=== PATIENT | female | born 1955 | race Caucasian/White ===

== ENCOUNTER → 2016-12-05 | Outpatient (CLI) | payer BC ==
[~2016-12-05] MED LIST: ACET325T96 PO; CALC-279 PO; FNTTP50 TD; FNTTP50 TOP; FURO-85 PO; LSX20 PO; MRLP17 PO; MULT-506 PO; ONDA-63 PO; ONDA8TAB62 SL; SULF-183 PO; ULT50 PO; ULT50X PO
--- NOTE | 2016-12-05 13:54 | DIAGNOSTIC IMAGING REPORT ---
CHEST 2 VIEWS ROUTINE HISTORY: R91.1 Pulmonary [id number] Pleural effusion, malignant Prior to COMPARISON: Chest 10/27/2016. FINDINGS: No pneumothorax.] Jugular Port-A-Cath terminates at the SVC. The heart is stable in size. The left lung is essentially clear. Suture material within the right mid to lower lung zone. Progressive pleural/parenchymal density within the right hemithorax. This is demonstrated by diminished aeration within the right upper lobe. IMPRESSION: Progressive pleural/parenchymal density within the right hemithorax with near-complete opacification. Electronically signed by: Zach Darnell M.D. 12/05/2016 1:52 PM Dictated Date/Time: 12/05/2016 1:51 PM
== END | disposition home or self-care (01) ==
LOC: C.RAD 13:24
PROVIDERS: ATTEND Surgery
DX: R91.1 Solitary pulmonary nodule (principal); J91.0 Malignant pleural effusion

== ENCOUNTER 2016-12-12 14:55 | Inpatient (IN) | payer BC ==
[~2016-12-12] VITALS: Ht 160 cm; Wt 63.5 kg
[~2016-12-12 14:55] MED LIST changes: -FNTTP50 TOP; -FURO-85 PO; -LSX20 PO; -MRLP17 PO; -MULT-506 PO; -ONDA-63 PO; -SULF-183 PO; -ULT50 PO
[2016-12-12] MEDS ORDERED: SODIUM CHLORIDE 0.9% 1000ML 1,000 ML IV STA (15:06)
[2016-12-12] MEDS ORDERED: ONDANSETRON INJ 2 MG/ML 2 ML VIAL IV STA (15:06)
[2016-12-12] MEDS ORDERED: MoRPHine SULFATE 4 MG/ML 1 ML CARP\\VIAL IV PRN (15:15)
--- NOTE | 2016-12-12 15:45 | EMERGENCY ROOM VISIT NOTE ---
History Report prepared by Kayla: Kyra Madrid Under the Supervision of: Dr. Dell Hidalgo D.O. First contact with patient: 15:02 Chief Complaint: SWELLING TO EXTREMITY Stated Complaint: SENT FROM RAD. ONCOLOGY; SWELLING IN LEGS, COUGH History of Present Illness The patient is a 61 year old female who presents to the Emergency Room with complaints of persistent bilateral lower extremity swelling starting about 2 weeks ago. She reports tightness in her lower extremities. She also complains of generalized body aches. She reports a mild discomfort in her chest. She describes it to be pins and needles type of pain. She reports a headache which started 5 days ago. She denies fevers, chills, or any other complaints. She was referred to the Emergency Room by her oncologist. The patient has a history of uterine cancer occurring 2 years ago. She was diagnosed with lung cancer about a year ago which has metastasized to the liver. She is receiving radiation therapy. She is not currently receiving chemotherapy. She denies any history of cholecystectomy and appendectomy. Source of History: patient Onset: about 2 weeks ago Position: leg (bilateral) Quality: other (tightness) Timing: other (persistent) Associated Symptoms: + chest pain, + headache, No chills, No fevers Review of Systems See HPI for pertinent positives & negatives. A total of 10 systems reviewed and were otherwise negative. Past Medical & Surgical Medical Problems: (1) Anasarca (2) Carcinosarcoma of uterus (3) Pleural effusion (4) Port catheter in place Family History Cancer FH: abdominal aortic aneurysm repair Social History Smoking Status: Never Smoker Drug Use: none Marital Status: Occupation Status: employed Current/Historical Medications Scheduled Calcium Citrate-Vitamin D (Calcium Citrate + D), 1 TAB PO TID Fentanyl (Duragesic), 50 MCG TD CQ72HR Multivitamin (Multivitamin), 1 TAB PO QAM Scheduled PRN Acetaminophen Tab (Tylenol), 650 MG PO Q4-6H PRN for Pain Ondansetron Odt (Zofran Odt), 8 MG SL Q6H PRN for Nausea Tramadol HCl (Tramadol HCl), 50 MG PO Q4H PRN for Pain Allergies Coded Allergies: Oxycodone (Verified Adverse Reaction, Unknown, NAUSEA AND VOMITING WITH EVERY DOSE, 12/12/16) Physical Exam Vital Signs Date Time Temp Pulse Resp B/P Pulse Ox O2 Delivery O2 Flow Rate FiO2 12/12/16 19:01 86 121/66 98 Nasal Cannula 2.0 12/12/16 17:50 87 23 96 12/12/16 17:45 90 30 96 12/12/16 17:40 91 22 96 12/12/16 17:35 88 27 96 12/12/16 17:30 90 28 96 12/12/16 17:28 110/61 12/12/16 17:25 96 30 95 12/12/16 17:20 92 26 96 12/12/16 17:15 94 26 95 12/12/16 17:10 93 24 96 12/12/16 17:05 94 28 94 12/12/16 17:00 94 30 96 12/12/16 16:58 113/61 12/12/16 16:55 95 30 96 12/12/16 16:50 90 26 96 12/12/16 16:45 90 32 96 Nasal Cannula 2.0 12/12/16 16:40 91 21 90 12/12/16 16:35 87 31 12/12/16 16:30 96 26 12/12/16 16:28 113/99 12/12/16 16:25 85 20 94 12/12/16 16:20 93 29 95 12/12/16 16:15 81 26 99 Nasal Cannula 3.0 12/12/16 16:10 91 25 86 Room Air 12/12/16 16:09 83 12/12/16 16:03 86 22 119/69 90 Room Air 12/12/16 15:58 119/69 12/12/16 14:59 36.8 101 22 112/73 89 Room Air Physical Exam GENERAL: Patient is awake, alert, non anxious appearing but appears drained. EYES: The conjunctivae are clear. The pupils are round and reactive. EARS, NOSE, MOUTH AND THROAT: The nose is without any evidence of any deformity. Mucous membranes are moist tongue is midline NECK: The neck is nontender and supple. RESPIRATORY: Lung sounds are absent in the left lung field. Lung sounds are clear in the right lung field. No conversational dyspnea noted. CARDIOVASCULAR: Tachycardic rate and regular rhythm noted there no murmurs rubs or gallops normal S1 normal S2 GASTROINTESTINAL: The abdomen is soft. Bowel sounds are present in all quadrants. Abdomen is nontender BACK: No midline tenderness noted, large firm soft tissue mass over the right lateral rib cage. MUSCULOSKELETAL/EXTREMITIES: There is no evidence of gross deformity full range of motion is noted in the hips and shoulders SKIN: There is no obvious evidence of any rash. There are no petechiae, pallor or cyanosis noted. Pitting edema in bilateral lower extremities, no erythema or calf tenderness noted. NEUROLOGIC: Patient is awake alert and oriented x3 Medical Decision & Procedures ER Provider Diagnostic Interpretation: X-ray results as stated below per interpretation by me and the radiologist. SINGLE VIEW CHEST CLINICAL HISTORY: Generalized abdominal pain. Lower extremity swelling. History of lung cancer. FINDINGS: An AP, portable, upright chest radiograph is compared to study dated 12/05/2016 and correlated with chest CT dated 08/16/2016. A right internal jugular central venous infusion port is unchanged in position. The cardiac silhouette is largely obscured. The pulmonary vasculature is noncongested. Postoperative changes and volume loss are again noted in the right lung. Pleural fluid and parenchymal opacification throughout the right lung is similar to previous. The left lung is grossly clear. There is no pneumothorax. The skeletal structures are osteopenic. The bony thorax appears intact. IMPRESSION: 1. Pleural-parenchymal opacification throughout the right lung is unchanged from 12/05/2016. 2. The left lung is grossly clear. Electronically signed by: Kenny Bolanos M.D. 12/12/2016 3:55 PM Dictated Date/Time: 12/12/2016 3:53 PM KUB HISTORY: Generalized abdominal pain. COMPARISON: Chest 12/12/2016. Abdomen and pelvis CT 11/02/2016. FINDINGS: There are no dilated loops of small bowel to suggest an obstruction. Large amount well-formed stool seen within the colon and rectum. Stable complete opacification of the base of the right lung. No renal calculi. No ureteral calculi. No pneumoperitoneum or pneumatosis. Of note, the majority of the bowel is located within the left side the abdomen due to the inferiorly displaced liver. This remains unchanged. IMPRESSION: 1. No dilated loops of small bowel to suggest an obstruction. 2. Large amount of well-formed stool seen within the colon. 3. No change in the opacified right lung base. This is consistent with the patient's history of metastatic disease. Electronically signed by: Zach Darnell M.D. 12/12/2016 4:31 PM Dictated Date/Time: 12/12/2016 4:27 PM US results as stated below per my review and radiologist interpretation. ULTRASOUND VENOUS DOPPLER LWR EXT BILA CLINICAL HISTORY: Bilateral leg swelling COUGH COMPARISON STUDY: No previous studies for comparison. FINDINGS: Real-time and color flow Doppler imaging were performed. Flow was seen within the femoral, popliteal and calf veins with no intraluminal thrombus demonstrated. The saphenous vein is patent. IMPRESSION: No evidence of lower extremity DVT. Electronically signed by: Joe Langley M.D. 12/12/2016 6:36 PM Dictated Date/Time: 12/12/2016 6:35 PM Laboratory Results Test 12/12/16 15:43 12/12/16 16:19 12/12/16 16:43 Urine Color DK YELLOW Urine Appearance CLOUDY (CLEAR) Urine pH 6.0 (4.5-7.5) Urine Specific [place] 1.018 (1.000-1.030) Urine Protein TRACE (NEG) Urine Glucose (UA) NEG (NEG) Urine Ketones NEG (NEG) Urine Occult Blood NEG (NEG) Urine Nitrite POS (NEG) Urine Bilirubin NEG (NEG) Urine Urobilinogen POS (NEG) Urine Leukocyte Esterase MODERATE (NEG) Urine WBC (Auto) >30 /hpf (0-5) Urine RBC (Auto) 0-4 /hpf (0-4) Urine Hyaline Casts (Auto) 0 /lpf (0-5) Urine Epithelial Cells (Auto) 5-10 /lpf (0-5) Urine Bacteria (Auto) 1+ (NEG) Pro-B-Type Natriuretic Peptide 159 pg/ml (0-900) Lipase 76 U/L (73-393) Influenza Type A Antigen Neg for Influ A (NEG) Influenza Type B Antigen Neg for Influ B (NEG) Osmolality 266 mOsm/kg (280-300) Laboratory results per my review. Medications Administered Medications (Trade) Dose Ordered Sig/Pancho Route Start Time Stop Time Status Last Admin Dose Admin Sodium Chloride (Nss 1000ml) 1,000 ml @ 999 mls/hr Q1H1M STAT IV 12/12/16 15:06 12/12/16 16:06 DC 12/12/16 15:52 999 MLS/HR Ondansetron HCl (Zofran Inj) 4 mg NOW STAT IV 12/12/16 15:06 12/12/16 15:19 DC 12/12/16 15:52 4 MG Morphine Sulfate (MoRPHine SULFATE INJ) 4 mg Q15M PRN IV 12/12/16 15:15 12/13/16 05:56 DC 12/12/16 15:53 4 MG Albuterol/ Ipratropium (Duoneb) 3 ml NOW STAT INH 12/12/16 16:15 12/12/16 16:16 DC 12/12/16 16:28 3 ML Ceftriaxone Sodium (Rocephin Inj) 1 gm NOW STAT IV 12/12/16 16:30 12/12/16 16:32 DC 12/12/16 16:46 1 GM ECG Indication: chest pain, other (Lower extremity swelling) Rate (beats per minute): 93 Rhythm: normal sinus Findings: ST depression (Lateral), no ectopy Comparison ECG Date: June 27, 2016 Change: no significant change ED Course 1502: The patient was evaluated in room C05. A complete history and physical examination were performed. 1506: Zofran Inj 4 m IV, Sodium Chloride 1000 ml @ 999 mls/hr IV 1515: Morphine Sulfate 4 mg IV 1625: Upon reevaluation, the patient is resting comfortably. I discussed results and treatment plan with her. She verbalizes agreement and understanding. The patient will be evaluated for further management and care. 1627: I discussed the patient's case with Dr. Pisano, from [facility]. 1630: Rocephin Inj 1 gm IV 1656: I discussed the patient's case with Dr. Neff, thoracic surgeon with [facility]. He does not feel that the patient needs a drain at this time but will evaluate her further. 1701: I discussed the patient's case with Dr. Pisano who is recommending an ultrasound of the lower extremities. Medical Decision Differential diagnosis: Etiologies such as infections, reactive airway disease, pneumonia, pneumothorax , COPD, CHF, cardiac ischemia, pulmonary embolism, musculoskeletal, gastrointestinal, as well as others were entertained. Nursing notes reviewed. Patient's previous electronic medical records reviewed. The patient is a unfortunate 61-year-old female who suffers from metastatic uterine cancer. The patient has a large soft tissue mass in the right chest wall. This appears to be causing an effusion as well as decreased lung volume. She's been having worsening shortness of breath and now has significant lower extremity edema. The patient was sent to the [facility] department from the cancer center for evaluation. She was found to be hypoxic. I discussed the patient's laboratory and radiographic studies with her. She was treated with pain medication as well for chronic cancer related pain. On subsequent reevaluation she was feeling somewhat better. I discussed the patient's condition with the on -call [facility] hospitalist group. They've agreed to evaluate the patient in the emergency apartment for further management and disposition. Consults Time Called: 162 Consulting Physician: Dr. Pisano, from [facility] Returned Call: 162 I discussed the patient's case with Dr. Pisano, from [facility]. Additional Consults: Time Called: 165 Consulted Physician: Dr. Neff, thoracic surgeon with [facility] Returned Call: [phone] Additional Comments: I discussed the patient's case with Dr. Neff, thoracic surgeon with [facility]. He does not feel that the patient needs a drain at this time but will evaluate her further. Impression Primary Impression: SOB (shortness of breath) Additional Impressions: Pleural effusion on right Hypoxia Lower extremity edema Anemia Elevated troponin Scribe Attestation The scribe's documentation has been prepared under my direction and personally reviewed by me in its entirety. I confirm that the note above accurately reflects all work, treatment, procedures, and medical decision making performed by me. Departure Information Dispostion Being Evaluated By Hospitalist Referrals Chris Mei D.O. (PCP) Patient Instructions My [facility] Problem Qualifiers
--- NOTE | 2016-12-12 15:57 | DIAGNOSTIC IMAGING REPORT ---
SINGLE VIEW CHEST CLINICAL HISTORY: Generalized abdominal pain. Lower extremity swelling. History of lung cancer. FINDINGS: An AP, portable, upright chest radiograph is compared to study dated 12/05/2016 and correlated with chest CT dated 08/16/2016. A right internal jugular central venous infusion port is unchanged in position. The cardiac silhouette is largely obscured. The pulmonary vasculature is noncongested. Postoperative changes and volume loss are again noted in the right lung. Pleural fluid and parenchymal opacification throughout the right lung is similar to previous. The left lung is grossly clear. There is no pneumothorax. The skeletal structures are osteopenic. The bony thorax appears intact. IMPRESSION: 1. Pleural-parenchymal opacification throughout the right lung is unchanged from 12/05/2016. 2. The left lung is grossly clear. Electronically signed by: Kenny Bolanos M.D. 12/12/2016 3:55 PM Dictated Date/Time: 12/12/2016 3:53 PM
[2016-12-12 16:06] LABS: BASO % 0.3 %; BASO ABS # 0.02 K/uL (0-0.2); COMPLETE YES; EOS % 0.6 %; HEMATOCRIT 29.4 % (37-47); IG% 0.3 %; LYMPH % 2.3 %; LYMPH ABS # 0.16 K/uL (1.2-3.4); MEAN CORPUSCULAR HEMOGLOBIN 23.3 pg (25-34); MEAN CORPUSCULAR HGB CONC 30.6 g/dl (32-36); MEAN PLATELET VOLUME 9.1 fL (7.4-10.4); MONO % 11.6 %; NEUT % 84.9 %; PLATELET COUNT 310 K/uL (130-400); RED BLOOD COUNT 3.87 M/uL (4.2-5.4); WHITE BLOOD COUNT 6.98 K/uL (4.8-10.8)
[2016-12-12 16:09] LABS: URINE APPEARANCE CLOUDY (CLEAR); URINE BILIRUBIN NEG (NEG); URINE COLOR DK YELLOW; URINE NITRITE POS (NEG); URINE SPECIFIC GRAVITY 1.018 (1.000-1.030); UROBILINOGEN POS (NEG)
[2016-12-12 16:10] LABS: MANUAL MICROSCOPIC REQUIRED? NO; REVIEW REQ? NO
[2016-12-12 16:15] LABS: INR 1.3 (0.9-1.1); PARTIAL THROMBOPLASTIN RATIO 1.2; PROTHROMBIN TIME (PATIENT) 13.5 SECONDS (9.0-12.0)
[2016-12-12] MEDS ORDERED: ALBUT/IPRATROP 3MG/0.5MG NEB 3 ML VIAL INH STA (16:15)
[2016-12-12] MEDS ORDERED: CEFTRIAXONE SOD INJ 1 GM ADDVIAL IV STA (16:30)
--- NOTE | 2016-12-12 16:32 | DIAGNOSTIC IMAGING REPORT ---
KUB HISTORY: Generalized abdominal pain. COMPARISON: Chest 12/12/2016. Abdomen and pelvis CT 11/02/2016. FINDINGS: There are no dilated loops of small bowel to suggest an obstruction. Large amount well-formed stool seen within the colon and rectum. Stable complete opacification of the base of the right lung. No renal calculi. No ureteral calculi. No pneumoperitoneum or pneumatosis. Of note, the majority of the bowel is located within the left side the abdomen due to the inferiorly displaced liver. This remains unchanged. IMPRESSION: 1. No dilated loops of small bowel to suggest an obstruction. 2. Large amount of well-formed stool seen within the colon. 3. No change in the opacified right lung base. This is consistent with the patient's history of metastatic disease. Electronically signed by: Zach Darnell M.D. 12/12/2016 4:31 PM Dictated Date/Time: 12/12/2016 4:27 PM
[2016-12-12 16:50] LABS: BUN/CREATININE RATIO 11.6 (10-20); CALCIUM 9.8 mg/dl (8.5-10.1); CKMB/CK RATIO 4.2 (0-3.0); CREATININE 0.54 mg/dl (0.60-1.20); POTASSIUM 3.9 mmol/L (3.5-5.1)
--- NOTE | 2016-12-12 18:03 | Medical Student: [facility] ---
Med Student History & Physical Date & Time of Service: Dec 12, 2016 at 17:38 Chief Complaint: Sent From Rad. Oncology; Swelling In Legs, Cough Primary Care Physician: Chris Mei D.O. History of Present Illness Source: patient, family 61 y/o female with a history of uterine cancer two years ago and current lung cancer with mets to the liver presents with leg swelling that began about two weeks ago. The swelling goes from her feet, to the lower leg, and stops around the knees. She has never had this swelling previously. The patient is currently being treated with radiation therapy for the lung cancer. She received two treatments two weeks ago and received five last week. When she went in for treatment today, she was sent to the emergency department for the swelling, pain at the site of the radiation treatment, and vomiting. The vomiting has been on and off for weeks but got worse today. She describes the vomit as mostly mucus. Her appetite has been decreased for months. Additionally, the patient states she started to have a "pins and needles" pain in the middle of chest that began yesterday. The pain has been off and on and does not radiate elsewhere. This pain is distinct from the pain she is having at the site of her radiation treatment. The patient has been having worsening shortness of breath in the past week. She also has had a cough and congestion for over a month. Earlier today, she states that she was wheezing. The patient states she has been less active in recent weeks. In September, Dr. Neff drained an effusion. The patient is receiving Opdivo treatment for her cancer. Past Medical/Surgical History Medical Problems: (1) Anemia Status: Acute (2) Elevated troponin Status: Acute (3) Hypoxia Status: Acute (4) Lower extremity edema Status: Acute (5) Pleural effusion on right Status: Acute (6) SOB (shortness of breath) 7. Lung Cancer with Mets to liver 8. Uterine Cancer Status: Acute Family History Father: coronary artery disease Mother: cancer (breast, colon) Social History Smoking Status: Never Smoker Smokeless Tobacco Use: No Alcohol Use: none Drug Use: none Marital Status: Housing status: lives alone Occupational Status: employed Immunizations History of Influenza Vaccine: Yes History of Tetanus Vaccine?: No History of Pneumococcal: No History of Hepatitis B Vaccine: No Allergies Coded Allergies: Oxycodone (Verified Adverse Reaction, Unknown, NAUSEA AND VOMITING WITH EVERY DOSE, 12/12/16) Medications Acetaminophen Tab (Tylenol), 650 MG PO Q4-6H PRN for Pain Calcium Citrate-Vitamin D (Calcium Citrate + D), 1 TAB PO TID Fentanyl (Duragesic), 50 MCG TD CQ72HR Multivitamin (Multivitamin), 1 TAB PO QAM Ondansetron Odt (Zofran Odt), 8 MG SL Q6H PRN for Nausea Tramadol HCl (Tramadol HCl), 50 MG PO Q4H PRN for Pain Review of Systems Constitutional: + weakness, No chills, No fever Eyes: No discharge, No redness ENT: No hearing loss, No tinnitus Respiratory: + cough, + dyspnea on exertion, + shortness of breath, + sputum, + wheezing Cardiovascular: + chest pain, + edema Abdomen: + nausea, + vomiting, No constipation, No diarrhea, No pain Neurologic: No memory loss, No paralysis Integumentary: No itch, No new/changing skin lesions, No rash Physical Exam Vital Signs (24 Hours) Date Time Temp Pulse Resp B/P Pulse Ox O2 Delivery O2 Flow Rate FiO2 12/12/16 16:45 90 32 96 Nasal Cannula 2.0 12/12/16 16:40 91 21 90 12/12/16 16:35 87 31 12/12/16 16:30 96 26 12/12/16 16:28 113/99 12/12/16 16:25 85 20 94 12/12/16 16:20 93 29 95 12/12/16 16:15 81 26 99 Nasal Cannula 3.0 12/12/16 16:10 91 25 86 Room Air 12/12/16 16:09 83 12/12/16 16:03 86 22 119/69 90 Room Air 12/12/16 15:58 119/69 12/12/16 14:59 36.8 101 22 112/73 89 Room Air General Appearance: no apparent distress, + thin Head: normocephalic Eyes: normal inspection, EOMI ENT: hearing grossly normal Respiratory/Chest: no respiratory distress, + pertinent finding (absent breath sounds on right, swelling, bruising, and tenderness on right side of rib cage at the site of radiation treatment) Cardiovascular: no gallop, no murmur, + tachycardia, + pertinent finding (3+ bilateral lower extremity edema from ankle to knee) Abdomen/GI: normal bowel sounds, non tender, soft Back: normal inspection, no muscle spasm Neurologic/Psych: alert, normal mood/affect, oriented x 3 Skin: warm/dry, no rash Diagnostics Laboratory Results Results Past 24 Hours Test 12/12/16 15:43 12/12/16 16:19 12/12/16 16:43 Range/Units White Blood Count 6.98 4.8-10.8 K/uL Red Blood Count 3.87 4.2-5.4 M/uL Hemoglobin 9.0 12.0-16.0 g/dL Hematocrit 29.4 37-47 % Mean Corpuscular Volume 76.0 80-100 fL Mean Corpuscular Hemoglobin 23.3 25-34 pg Mean Corpuscular Hemoglobin Concent 30.6 32-36 g/dl Platelet Count 310 130-400 K/uL Mean Platelet Volume 9.1 7.4-10.4 fL Neutrophils (%) (Auto) 84.9 % Lymphocytes (%) (Auto) 2.3 % Monocytes (%) (Auto) 11.6 % Eosinophils (%) (Auto) 0.6 % Basophils (%) (Auto) 0.3 % Neutrophils # (Auto) 5.93 1.4-6.5 K/uL Lymphocytes # (Auto) 0.16 1.2-3.4 K/uL Monocytes # (Auto) 0.81 0.11-0.59 K/uL Eosinophils # (Auto) 0.04 0-0.5 K/uL Basophils # (Auto) 0.02 0-0.2 K/uL RDW Standard Deviation 53.6 36.4-46.3 fL RDW Coefficient of Variation 19.4 11.5-14.5 % Immature Granulocyte % (Auto) 0.3 % Immature Granulocyte # (Auto) 0.02 0.00-0.02 K/uL Prothrombin Time 13.5 9.0-12.0 SECONDS Prothromb Time International Ratio 1.3 0.9-1.1 Activated Partial Thromboplast Time 30.5 21.0-31.0 SECONDS Partial Thromboplastin Ratio 1.2 Urine Color DK YELLOW Urine Appearance CLOUDY CLEAR Urine pH 6.0 4.5-7.5 Urine Specific [place] 1.018 1.000-1.030 Urine Protein TRACE NEG Urine Glucose (UA) NEG NEG Urine Ketones NEG NEG Urine Occult Blood NEG NEG Urine Nitrite POS NEG Urine Bilirubin NEG NEG Urine Urobilinogen POS NEG Urine Leukocyte Esterase MODERATE NEG Urine WBC (Auto) >30 0-5 /hpf Urine RBC (Auto) 0-4 0-4 /hpf Urine Hyaline Casts (Auto) 0 0-5 /lpf Urine Epithelial Cells (Auto) 5-10 0-5 /lpf Urine Bacteria (Auto) 1+ NEG Sodium Level 129 136-145 mmol/L Potassium Level 3.9 3.5-5.1 mmol/L Chloride Level 88 98-107 mmol/L Carbon Dioxide Level 31 21-32 mmol/L Anion Gap 10.0 3-11 mmol/L Blood Urea Nitrogen 6 7-18 mg/dl Creatinine 0.54 0.60-1.20 mg/dl Est Creatinine Clear Calc Drug Dose 102.8 ml/min Estimated GFR () 119.7 Estimated GFR (Non- 103.3 BUN/Creatinine Ratio 11.6 10-20 Random Glucose 87 70-99 mg/dl Calcium Level 9.8 8.5-10.1 mg/dl Total Bilirubin 0.7 0.2-1 mg/dl Direct Bilirubin 0.3 0-0.2 mg/dl Aspartate Amino Transf (AST/SGOT) 30 15-37 U/L Alanine Aminotransferase (ALT/SGPT) 17 12-78 U/L Alkaline Phosphatase 130 45-117 U/L Total Creatine Kinase 24 26-192 U/L Creatine Kinase MB 1.0 0.5-3.6 ng/ml Creatine Kinase MB Ratio 4.2 0-3.0 Troponin I 0.063 0-0.045 ng/ml Pro-B-Type Natriuretic Peptide 159 0-900 pg/ml Total Protein 7.0 6.4-8.2 gm/dl Albumin 2.5 3.4-5.0 gm/dl Lipase 76 73-393 U/L Influenza Type A Antigen Neg for Influ A NEG Influenza Type B Antigen Neg for Influ B NEG Osmolality 266 280-300 mOsm/kg Microbiology Results 12/12/16 Urine Culture, Stephen Batch Pending Diagnostic Radiology CXR: FINDINGS: An AP, portable, upright chest radiograph is compared to study dated 12/05/2016 and correlated with chest CT dated 08/16/2016. A right internal jugular central venous infusion port is unchanged in position. The cardiac silhouette is largely obscured. The pulmonary vasculature is noncongested. Postoperative changes and volume loss are again noted in the right lung. Pleural fluid and parenchymal opacification throughout the right lung is similar to previous. The left lung is grossly clear. There is no pneumothorax. The skeletal structures are osteopenic. The bony thorax appears intact. IMPRESSION: 1. Pleural-parenchymal opacification throughout the right lung is unchanged from 12/05/2016. 2. The left lung is grossly clear. KUB IMPRESSION: 1. No dilated loops of small bowel to suggest an obstruction. 2. Large amount of well-formed stool seen within the colon. 3. No change in the opacified right lung base. This is consistent with the patient's history of metastatic disease. LOWER EXTREMITY VENOUS DOPPLER IMPRESSION: No evidence of lower extremity DVT. Impression Assessment and Plan Assessment and Plan: Given the result of the patient's urinalysis, she will be treated for UTI. Serum osmolality showed a hypervolemic hyponatremia suggesting that the patient is in fluid overload and does not have SIADH. Fluid overload will be treated with Lasix. Given the patient's elevated troponin, will check serial cardiac enzymes. 1. Hypervolemic Hyponatremia and Leg Swelling- Administer Lasix IV [id number]. Continue to monitor electrolytes. 2. SOB, cough, congestion- Given the large pleural effusion and difficulty seeing potential infection on CXR, will consider ordering a CT of the chest to better visualize. Administer 2L 02 via nasal canula. 3. Radiation site pain- Fentanyl Patch 50mcg and Tramadol tab 50mg PO Q4h prn for pain. 4. Nausea and Vomiting- Administer Ondansetron 4mg IV PRN 5. Elevated Troponin and Chest Pain- Obtain serial cardiac enzymes and repeat ECGs. Echo ordered. 6. UTI- Ceftriaxone 1gm IV was administered. Continue to check urine.
--- NOTE | 2016-12-12 18:37 | DIAGNOSTIC IMAGING REPORT ---
ULTRASOUND VENOUS DOPPLER LWR EXT BILA CLINICAL HISTORY: Bilateral leg swelling COUGH COMPARISON STUDY: No previous studies for comparison. FINDINGS: Real-time and color flow Doppler imaging were performed. Flow was seen within the femoral, popliteal and calf veins with no intraluminal thrombus demonstrated. The saphenous vein is patent. IMPRESSION: No evidence of lower extremity DVT. Electronically signed by: Joe Langley M.D. 12/12/2016 6:36 PM Dictated Date/Time: 12/12/2016 6:35 PM
[2016-12-12] MEDS ORDERED: ZOLPIDEM TARTRATE 5 MG TAB PO PRN (20:15)
[2016-12-12] MEDS ORDERED: ONDANSETRON INJ 2 MG/ML 2 ML VIAL IV PRN (20:15)
[2016-12-12] MEDS ORDERED: TRAMADOL HCL 50 MG TAB PO PRN (20:15)
[2016-12-12] MEDS ORDERED: ACETAMINOPHEN 325 MG TAB PO PRN ×2 (20:15)
[2016-12-12 21:09] VITALS: BP 120/70; PULSE 82; TEMP 36.6; O2SAT 99; Ht 160 cm; Wt 63.5 kg
[2016-12-12] MEDS: ALBUMIN 25% 50 ML with FUROSEMIDE INJ 40 MG IV SCH ×2 (22:09)
[2016-12-12 22:22] LABS: CKMB/CK RATIO 2.3 (0-3.0)
[2016-12-12] MEDS: CHECK FENTANYL PATCH PLACEMENT SCH (23:30)
[2016-12-12 23:56] VITALS: BP 115/70; PULSE 86; TEMP 36.5; O2SAT 98
[2016-12-13] VITALS (12 sets, daily range): BP systolic 107–124; BP diastolic 58–71; PULSE 82–108; TEMP 36.6–36.9; O2SAT 91–98
[2016-12-13] MEDS: ALBUMIN 25% 50 ML with FUROSEMIDE INJ 40 MG IV SCH ×4 (03:57→10:59)
[2016-12-13 04:11] LABS: BASO % 0.3 %; BASO ABS # 0.02 K/uL (0-0.2); EOS % 1.4 %; HEMATOCRIT 24.2 % (37-47); IG% 0.3 %; LYMPH % 8.9 %; LYMPH ABS # 0.51 K/uL (1.2-3.4); MEAN CELL VOLUME 74.5 fL (80-100); MEAN CORPUSCULAR HEMOGLOBIN 23.1 pg (25-34); MEAN PLATELET VOLUME 9.4 fL (7.4-10.4); MONO % 5.2 %; NEUT % 83.9 %; PLATELET COUNT 239 K/uL (130-400); RED BLOOD COUNT 3.25 M/uL (4.2-5.4); WHITE BLOOD COUNT 5.72 K/uL (4.8-10.8)
[2016-12-13 04:18] LABS: INR 1.3 (0.9-1.1); PARTIAL THROMBOPLASTIN RATIO 1.2; PROTHROMBIN TIME (PATIENT) 14.4 SECONDS (9.0-12.0)
[2016-12-13 04:27] LABS: BUN/CREATININE RATIO 11.5 (10-20); CALCIUM 9.2 mg/dl (8.5-10.1); CREATININE 0.43 mg/dl (0.60-1.20); MAGNESIUM 1.2 mg/dl (1.8-2.4); POTASSIUM 3.8 mmol/L (3.5-5.1)
--- NOTE | 2016-12-13 04:30 | History and Physical ---
History & Physical Date & Time of Service: Dec 13, 2016 at 04:19 Chief Complaint: Anasarca, Elevated Troponin Primary Care Physician: Chris Mei D.O. History of Present Illness Source: patient The patient is a 61-year-old female who presents emergency department with 2 weeks of progressively worsening lower extremity edema, generalized body aches, shortness of breath, and headache. She had been diagnosed with lung cancer one year ago, with metastases to liver, status post chemotherapy, and is receiving radiation therapy. Past Medical/Surgical History Medical Problems: (1) Carcinosarcoma of uterus Permanent Comment: Postmenopausal vaginal bleeding CT scan revealing dilated endometrial cavity Status post endocervical biopsy revealing with the differentiated carcinoma Due to severe bleeding she was given 900 cGy of radiation in 3 fractions beginning 12/03/2014 Status post total [place] hysterectomy bilateral salpingo-oophorectomy and pelvic lymph node sampling with pelvic washings Report revealed carcinosarcoma pathologic stage pT2 bN0 [place] technique radiation and chemotherapy Status post 3 cycles of Taxol carboplatin then Status post completion of radiation therapy 05/07/2015, received 4500 cGy external beam therapy She received 3 HDR treatments total 1200 cGy Currently on Opdivo for metastatic disease Status: Resolved (2) Pleural effusion Status: Resolved (3) Port catheter in place Status: Chronic Family History Cancer FH: abdominal aortic aneurysm repair Social History Smoking Status: Never Smoker Smokeless Tobacco Use: No Alcohol Use: none Drug Use: none Marital Status: Housing status: lives alone Occupational Status: employed Immunizations History of Influenza Vaccine: Yes History of Tetanus Vaccine?: No History of Pneumococcal: No History of Hepatitis B Vaccine: No Allergies Coded Allergies: Oxycodone (Verified Adverse Reaction, Unknown, NAUSEA AND VOMITING WITH EVERY DOSE, 12/12/16) Home Medications Scheduled Calcium Citrate-Vitamin D (Calcium Citrate + D), 1 TAB PO TID Fentanyl (Duragesic), 50 MCG TD [id number] Multivitamin (Multivitamin), 1 TAB PO QAM Scheduled PRN Acetaminophen Tab (Tylenol), 650 MG PO Q4-6H PRN for Pain Ondansetron Odt (Zofran Odt), 8 MG SL Q6H PRN for Nausea Tramadol HCl (Tramadol HCl), 50 MG PO Q4H PRN for Pain Review of Systems The patient denies vision change, hearing change, sore throat, fevers, chills, sweats, blood in urine or stool, dysuria, urinary frequency or urgency, rash, abnormal bruising or bleeding, focal weakness, night sweats, or allergy symptoms. The review of systems is otherwise negative other than for that already noted above, and at least 10 systems have been reviewed. Physical Exam Vital Signs Date Time Temp Pulse Resp B/P Pulse Ox O2 Delivery O2 Flow Rate FiO2 12/13/16 03:57 36.6 86 18 115/68 98 Nasal Cannula 2.0 12/13/16 00:00 98 Nasal Cannula 2.0 12/12/16 23:56 36.5 86 18 115/70 98 Nasal Cannula 2.0 12/12/16 21:09 36.6 82 20 120/70 99 Nasal Cannula 2.0 12/12/16 20:14 89 18 112/77 98 12/12/16 20:12 88 12/12/16 19:01 86 121/66 98 Nasal Cannula 2.0 12/12/16 17:50 87 23 96 12/12/16 17:45 90 30 96 12/12/16 17:40 91 22 96 12/12/16 17:35 88 27 96 12/12/16 17:30 90 28 96 12/12/16 17:28 110/61 12/12/16 17:25 96 30 95 12/12/16 17:20 92 26 96 12/12/16 17:15 94 26 95 12/12/16 17:10 93 24 96 12/12/16 17:05 94 28 94 12/12/16 17:00 94 30 96 12/12/16 16:58 113/61 12/12/16 16:55 95 30 96 12/12/16 16:50 90 26 96 12/12/16 16:45 90 32 96 Nasal Cannula 2.0 12/12/16 16:40 91 21 90 12/12/16 16:35 87 31 12/12/16 16:30 96 26 12/12/16 16:28 113/99 12/12/16 16:25 85 20 94 12/12/16 16:20 93 29 95 12/12/16 16:15 81 26 99 Nasal Cannula 3.0 12/12/16 16:10 91 25 86 Room Air 12/12/16 16:09 83 12/12/16 16:03 86 22 119/69 90 Room Air 12/12/16 15:58 119/69 12/12/16 14:59 36.8 101 22 112/73 89 Room Air The patient is awake, alert and oriented 3, looks chronically ill, lying in bed and in no acute distress. HEENT--PERRL, EOMI, mucous membranes and oropharynx dry. Neck--supple, no JVD or bruits, thyroid normal, trachea midline, no adenopathy. Heart--normal S1 and S2, no extra beats, no murmurs, rubs or gallops. Lungs--decreased breath sounds entire right lung, with crackles and wheezes scattered on left, mild respiratory distress, no accessory muscle use. Abdomen--normal bowel sounds and soft, nontender and nondistended, no hernias or masses, no organomegaly. Extremities--no cyanosis, clubbing. There is bilaterally 3+ lower and 1+ upper pitting Edema. There are good distal pulses b/l. Dermatologic--normal skin turgor, normal color, warm and dry, no abnormal lymph nodes, no rash. Neurologic--cranial nerves II through XII grossly intact, Psychiatric--normal affect. Diagnostics Laboratory Results Results Past 24 Hours Test 12/12/16 15:43 12/12/16 16:19 12/12/16 16:43 12/12/16 21:40 Range/Units White Blood Count 6.98 4.8-10.8 K/uL Red Blood Count 3.87 4.2-5.4 M/uL Hemoglobin 9.0 12.0-16.0 g/dL Hematocrit 29.4 37-47 % Mean Corpuscular Volume 76.0 80-100 fL Mean Corpuscular Hemoglobin 23.3 25-34 pg Mean Corpuscular Hemoglobin Concent 30.6 32-36 g/dl Platelet Count 310 130-400 K/uL Mean Platelet Volume 9.1 7.4-10.4 fL Neutrophils (%) (Auto) 84.9 % Lymphocytes (%) (Auto) 2.3 % Monocytes (%) (Auto) 11.6 % Eosinophils (%) (Auto) 0.6 % Basophils (%) (Auto) 0.3 % Neutrophils # (Auto) 5.93 1.4-6.5 K/uL Lymphocytes # (Auto) 0.16 1.2-3.4 K/uL Monocytes # (Auto) 0.81 0.11-0.59 K/uL Eosinophils # (Auto) 0.04 0-0.5 K/uL Basophils # (Auto) 0.02 0-0.2 K/uL RDW Standard Deviation 53.6 36.4-46.3 fL RDW Coefficient of Variation 19.4 11.5-14.5 % Immature Granulocyte % (Auto) 0.3 % Immature Granulocyte # (Auto) 0.02 0.00-0.02 K/uL Prothrombin Time 13.5 9.0-12.0 SECONDS Prothromb Time International Ratio 1.3 0.9-1.1 Activated Partial Thromboplast Time 30.5 21.0-31.0 SECONDS Partial Thromboplastin Ratio 1.2 Urine Color DK YELLOW Urine Appearance CLOUDY CLEAR Urine pH 6.0 4.5-7.5 Urine Specific [place] 1.018 1.000-1.030 Urine Protein TRACE NEG Urine Glucose (UA) NEG NEG Urine Ketones NEG NEG Urine Occult Blood NEG NEG Urine Nitrite POS NEG Urine Bilirubin NEG NEG Urine Urobilinogen POS NEG Urine Leukocyte Esterase MODERATE NEG Urine WBC (Auto) >30 0-5 /hpf Urine RBC (Auto) 0-4 0-4 /hpf Urine Hyaline Casts (Auto) 0 0-5 /lpf Urine Epithelial Cells (Auto) 5-10 0-5 /lpf Urine Bacteria (Auto) 1+ NEG Sodium Level 129 136-145 mmol/L Potassium Level 3.9 3.5-5.1 mmol/L Chloride Level 88 98-107 mmol/L Carbon Dioxide Level 31 21-32 mmol/L Anion Gap 10.0 3-11 mmol/L Blood Urea Nitrogen 6 7-18 mg/dl Creatinine 0.54 0.60-1.20 mg/dl Est Creatinine Clear Calc Drug Dose 102.8 ml/min Estimated GFR () 119.7 Estimated GFR (Non- 103.3 BUN/Creatinine Ratio 11.6 10-20 Random Glucose 87 70-99 mg/dl Calcium Level 9.8 8.5-10.1 mg/dl Total Bilirubin 0.7 0.2-1 mg/dl Direct Bilirubin 0.3 0-0.2 mg/dl Aspartate Amino Transf (AST/SGOT) 30 15-37 U/L Alanine Aminotransferase (ALT/SGPT) 17 12-78 U/L Alkaline Phosphatase 130 45-117 U/L Total Creatine Kinase 24 22 26-192 U/L Creatine Kinase MB 1.0 0.5 0.5-3.6 ng/ml Creatine Kinase MB Ratio 4.2 2.3 0-3.0 Troponin I 0.063 0.059 0-0.045 ng/ml Pro-B-Type Natriuretic Peptide 159 0-900 pg/ml Total Protein 7.0 6.4-8.2 gm/dl Albumin 2.5 3.4-5.0 gm/dl Lipase 76 73-393 U/L Influenza Type A Antigen Neg for Influ A NEG Influenza Type B Antigen Neg for Influ B NEG Osmolality 266 280-300 mOsm/kg Test 12/12/16 23:25 12/13/16 03:58 Range/Units Urine Osmolality 251 500-800 mOms/kg White Blood Count 5.72 4.8-10.8 K/uL Red Blood Count 3.25 4.2-5.4 M/uL Hemoglobin 7.5 12.0-16.0 g/dL Hematocrit 24.2 37-47 % Mean Corpuscular Volume 74.5 80-100 fL Mean Corpuscular Hemoglobin 23.1 25-34 pg Mean Corpuscular Hemoglobin Concent 31.0 32-36 g/dl Platelet Count 239 130-400 K/uL Mean Platelet Volume 9.4 7.4-10.4 fL Neutrophils (%) (Auto) 83.9 % Lymphocytes (%) (Auto) 8.9 % Monocytes (%) (Auto) 5.2 % Eosinophils (%) (Auto) 1.4 % Basophils (%) (Auto) 0.3 % Neutrophils # (Auto) 4.79 1.4-6.5 K/uL Lymphocytes # (Auto) 0.51 1.2-3.4 K/uL Monocytes # (Auto) 0.30 0.11-0.59 K/uL Eosinophils # (Auto) 0.08 0-0.5 K/uL Basophils # (Auto) 0.02 0-0.2 K/uL RDW Standard Deviation 52.3 36.4-46.3 fL RDW Coefficient of Variation 19.2 11.5-14.5 % Immature Granulocyte % (Auto) 0.3 % Immature Granulocyte # (Auto) 0.02 0.00-0.02 K/uL Prothrombin Time 14.4 9.0-12.0 SECONDS Prothromb Time International Ratio 1.3 0.9-1.1 Activated Partial Thromboplast Time 32.4 21.0-31.0 SECONDS Partial Thromboplastin Ratio 1.2 Creatine Kinase MB Ratio 0-3.0 Microbiology Results 12/12/16 Urine Culture, Received Pending Diagnostic Radiology Patient Name: BEHZAD KAISER Unit Number: [id number] Dictated: 12/12/161626 Transcribed: 12/12/161626 PA Printed Date/Time: [~ rep prt dt]/[~ rep prt tm] [~ rep ct labl] - [~ rep ct ivnm] [facility] [place] [place] [address] Dictated: 12/12/161626 Transcribed: 12/12/161626 PA Printed Date/Time: [~ rep prt dt]/[~ rep prt tm] [~ rep ct labl] - [~ rep ct ivnm] HISTORY: Generalized abdominal pain. COMPARISON: Chest 12/12/2016. Abdomen and pelvis CT 11/02/2016. FINDINGS: There are no dilated loops of small bowel to suggest an obstruction. Large amount well-formed stool seen within the colon and rectum. Stable complete opacification of the base of the right lung. No renal calculi. No ureteral calculi. No pneumoperitoneum or pneumatosis. Of note, the majority of the bowel is located within the left side the abdomen due to the inferiorly displaced liver. This remains unchanged. IMPRESSION: 1. No dilated loops of small bowel to suggest an obstruction. 2. Large amount of well-formed stool seen within the colon. 3. No change in the opacified right lung base. This is consistent with the patient's history of metastatic disease. Electronically signed by: Zach Darnell M.D. 12/12/2016 4:31 PM Dictated Date/Time: 12/12/2016 4:27 PM The status of this report is Signed. Draft = Not yet reviewed or approved by Radiologist. Signed = Reviewed and approved by Radiologist. <AttendingPhy></AttendingPhy> <FamilyPhy>Chris Mei D.O.</FamilyPhy> < PrimaryPhy>Chris Mei D.O.</PrimaryPhy> <UnitNumber>[id number]</UnitNumber > <VisitNumber>[id number]</VisitNumber> <PatientName>BEHZAD KAISER</ PatientName> <DateOfBirth>1955</DateOfBirth> <Location>C[facility]C</Location> < ServiceDate>12/12/16</ServiceDate> <MNE>ESINDI</MNE> <OrderingPhy>Dell Hidalgo D.O.</OrderingPhy> <OrderingPhyMNE>f rep ord dr rodríguez</OrderingPhyMNE> <DictatingPhyMNE>f rep dict dr rodríguez</DictatingPhyMNE> <CCListMNE>f rep ct mne</ CCListMNE> <AdmittingPhyMNE>f pt admit dr rodríguez</AdmittingPhyMNE> <AttendingPhyMNE >f pt attend dr rodríguez</AttendingPhyMNE> <ConsultingPhyMNE>f pt consult dr rodríguez</ConsultingPhyMNE> <FamilyPhyMNE>f pt fam dr rodríguez</FamilyPhyMNE> <OtherPhyMNE>f pt other dr rodríguez</OtherPhyMNE> < PrimaryPhyMNE>f pt prim care dr rodríguez</PrimaryPhyMNE> <ReferringPhyMNE>f pt referring dr rodríguez</ReferringPhyMNE> Patient Name: BEHZAD KAISER Unit Number: [id number] Dictated: 12/12/161552 Transcribed: 12/12/161552 EV Printed Date/Time: [~ rep prt dt]/[~ rep prt tm] [~ rep ct labl] - [~ rep ct ivnm] [facility] [place] [address] Dictated: 12/12/161552 Transcribed: 12/12/161552 EV Printed Date/Time: [~ rep prt dt]/[~ rep prt tm] [~ rep ct labl] - [~ rep ct ivnm] DIAGNOSTIC IMAGING [~ rep ct add3]] SINGLE VIEW CHEST CLINICAL HISTORY: Generalized abdominal pain. Lower extremity swelling. History of lung cancer. FINDINGS: An AP, portable, upright chest radiograph is compared to study dated 12/05/2016 and correlated with chest CT dated 08/16/2016. A right internal jugular central venous infusion port is unchanged in position. The cardiac silhouette is largely obscured. The pulmonary vasculature is noncongested. Postoperative changes and volume loss are again noted in the right lung. Pleural fluid and parenchymal opacification throughout the right lung is similar to previous. The left lung is grossly clear. There is no pneumothorax. The skeletal structures are osteopenic. The bony thorax appears intact. IMPRESSION: 1. Pleural-parenchymal opacification throughout the right lung is unchanged from 12/05/2016. 2. The left lung is grossly clear. Electronically signed by: Kenny Bolanos M.D. 12/12/2016 3:55 PM Dictated Date/Time: 12/12/2016 3:53 PM The status of this report is Signed. Draft = Not yet reviewed or approved by Radiologist. Signed = Reviewed and approved by Radiologist. <AttendingPhy></AttendingPhy> <FamilyPhy>Chris Mei D.O.</FamilyPhy> < PrimaryPhy>Chris Mei D.O.</PrimaryPhy> <UnitNumber>[id number]</UnitNumber > <VisitNumber>[id number]</VisitNumber> <PatientName>AWILDABEHZAD Alisson</ PatientName> <DateOfBirth>1955</DateOfBirth> <Location>C.EDC</Location> < ServiceDate>12/12/16</ServiceDate> <MNE>ESINDI</MNE> <OrderingPhy>Dell Hidalgo D.O.</OrderingPhy> <OrderingPhyMNE>f rep ord dr rodríguez</OrderingPhyMNE> <DictatingPhyMNE>f rep dict dr rodríguez</DictatingPhyMNE> <CCListMNE>f rep ct marcos</ CCListMNE> <AdmittingPhyMNE>f pt admit dr rodríguez</AdmittingPhyMNE> <AttendingPhyMNE >f pt attend dr rodríguez</AttendingPhyMNE> <ConsultingPhyMNE>f pt consult dr rodríguez</ConsultingPhyMNE> <FamilyPhyMNE>f pt fam dr rodríguez</FamilyPhyMNE> <OtherPhyMNE>f pt other dr rodríguez</OtherPhyMNE> < PrimaryPhyMNE>f pt prim care dr rodríguez</PrimaryPhyMNE> <ReferringPhyMNE>f pt referring dr rodríguez</ReferringPhyMNE> Patient Name: BEHZAD KAISER Unit Number: [id number] Dictated: 12/12/161834 Transcribed: 12/12/161834 ARG Printed Date/Time: [~ rep prt dt]/[~ rep prt tm] [~ rep ct labl] - [~ rep ct ivnm] [facility] [place] [address] Dictated: 12/12/161834 Transcribed: 12/12/161834 ARG Printed Date/Time: [~ rep prt dt]/[~ rep prt tm] [~ rep ct labl] - [~ rep ct ivnm] [~ rep ct add3]] ULTRASOUND VENOUS DOPPLER LWR EXT BILA CLINICAL HISTORY: Bilateral leg swelling COUGH COMPARISON STUDY: No previous studies for comparison. FINDINGS: Real-time and color flow Doppler imaging were performed. Flow was seen within the femoral, popliteal and calf veins with no intraluminal thrombus demonstrated. The saphenous vein is patent. IMPRESSION: No evidence of lower extremity DVT. Electronically signed by: Joe Langley M.D. 12/12/2016 6:36 PM Dictated Date/Time: 12/12/2016 6:35 PM The status of this report is Signed. Draft = Not yet reviewed or approved by Radiologist. Signed = Reviewed and approved by Radiologist. <AttendingPhy></AttendingPhy> <FamilyPhy>Chris Mei D.O.</FamilyPhy> < PrimaryPhy>Chris Mei D.O.</PrimaryPhy> <UnitNumber>[id number]</UnitNumber > <VisitNumber>[id number]</VisitNumber> <PatientName>BEHZAD KAISER</ PatientName> <DateOfBirth>1955</DateOfBirth> <Location>C.EDC</Location> < ServiceDate>12/12/16</ServiceDate> <MNE>ESINDI</MNE> <OrderingPhy>Dell Hidalgo D.O.</OrderingPhy> <OrderingPhyMNE>f rep ord dr rodríguez</OrderingPhyMNE> <DictatingPhyMNE>f rep dict dr rodríguez</DictatingPhyMNE> <CCListMNE>f rep ct marcos</ CCListMNE> <AdmittingPhyMNE>f pt admit dr rodríguez</AdmittingPhyMNE> <AttendingPhyMNE >f pt attend dr rodríguez</AttendingPhyMNE> <ConsultingPhyMNE>f pt consult dr rodríguez</ConsultingPhyMNE> <FamilyPhyMNE>f pt fam dr rodríguez</FamilyPhyMNE> <OtherPhyMNE>f pt other dr rodríguez</OtherPhyMNE> < PrimaryPhyMNE>f pt prim care dr rodríguez</PrimaryPhyMNE> <ReferringPhyMNE>f pt referring dr rodríguez</ReferringPhyMNE> EKG EKG shows normal sinus rhythm at 93 bpm, left axis deviation, no acute ST-T changes Impression Assessment and Plan Acute on chronic CHF/anasarca/elevated troponin/hypoalbuminemia--patient be admitted to the telemetry unit, for serial cardiac enzymes, cardiac rhythm monitoring, and a 2-D echocardiogram with Dopplers. We'll place on albumin with Lasix IV every 6 hours for 4 doses. We'll follow serial BMP and magnesium levels. Hypoxia/CHF/right lung mass--has been seen by Dr. Neff in the past, with Pleurx catheter placement, but whom felt at this point that interventional treatment was not indicated. She may have an underlying pulmonary process such as pneumonia underneath the white count, and we placed him on empiric antibiotic broad-spectrum therapy with vancomycin IV and Zosyn IV. UTI--will be on Vanco IV and Zosyn IV as noted above for possible respiratory and urinary process. Hyponatremia with hypervolemia and hypoalbuminemia--albumin with Lasix IV as noted above. We'll follow serial BMP and magnesium levels. Level of Care Telemetry Advanced Directives Existing Advance Directive: Yes Existing Living Will: Yes Existing Power of Jail Keeper: Yes Resuscitation Status FULL RESUSCITATION VTE Prophylaxis VTE Risk Assessment Done? Y/N: Yes Risk Level: Moderate Given or contraindicated: SCD's Social Service Consult Cancer Patient Under [place]
[2016-12-13 04:37] LABS: COMPLETE YES
[2016-12-13 04:39] LABS: CKMB/CK RATIO 4.1 (0-3.0)
[2016-12-13 05:08] LABS: HEMATOCRIT 25.1 % (37-47)
--- NOTE | 2016-12-13 05:28 | Progress Note ---
Progress Note HGB was noted to be 7.5 A repeat HH and type and screen for 4 units was ordered and held - since receiving chemo her general BL of 11 hgb has dropped to 8-9 (since jul 2016) and she received a transfusion of 2 pRBC Oct 27 for a hgb of <8 - She is currently hemodynamically stable and has received a bolus of fluid and albumin - cross and type is still pending and hgb repeat is 7.7 - will hold transfusion until after reevaluation this morning as may be iatrogenic and patient is doing well/ asymptomatic at this time
[2016-12-13] MEDS ORDERED: METHYLPREDNISOLONE IV 30 MG in SYRINGE 0 ML IV SCH (06:00)
[2016-12-13] MEDS ORDERED: PIPERACILL/TAZOBAC IV 3.375 GM in DEXTROSE 5% 100ML 100 ML IV ONE (06:15)
[2016-12-13] MEDS ORDERED: VANCOMYCIN CONSULT ACTIVE PRN (06:15)
[2016-12-13] MEDS ORDERED: PIPERACILL/TAZOBAC CONSULT ACTIVE PRN (06:15)
[2016-12-13] MEDS ORDERED: VANCOMYCIN INJ 1,650 MG in SODIUM CHLORIDE 0.9% 500ML 500 ML IV ONE (06:30)
[2016-12-13] MEDS ORDERED: NURSING VERBAL MED ORDER ONE (07:30)
[2016-12-13] MEDS ORDERED: PERFLUTREN LIPID MICROSPHERE (DEFINITY) IV ONE (07:32)
[2016-12-13] MEDS: CHECK FENTANYL PATCH PLACEMENT SCH ×2 (08:00→15:50)
[2016-12-13] MEDS: IPRATROPIUM BROMIDE NEB SOLN 0.02% 2.5 ML VIAL INH SCH ×3 (08:43→19:26)
[2016-12-13] MEDS: LEVALBUTEROL 1.25MG/0.5ML NEB INH SCH ×3 (08:43→19:26)
[2016-12-13] MEDS: GUAIFENESIN 600 MG TABCR PO SCH ×2 (08:59→19:39)
[2016-12-13] MEDS ORDERED: LEVALBUTEROL/IPRATROPIUM NEB INH SCH (09:00)
[2016-12-13] MEDS: MULTIVITAMIN TAB PO SCH (09:00)
[2016-12-13] MEDS: MAGNESIUM SULFATE 1GM / D5W 1 GM in PREMIXED IN D5W 100 ML IV SCH ×2 (09:00→10:10)
[2016-12-13] MEDS: CALCIUM 600MG + VIT D 400 IU TAB PO SCH ×3 (09:00→15:50)
--- NOTE | 2016-12-13 09:35 | ECHOCARDIOGRAM REPORT ---
*NOTICE TO RECEIVING [employer] This information is strictly Confidential and protected under [place] law. [place] law prohibits you from making any further disclosure of this information unless further disclosure is expressly permitted by the written consent of the person to whom it pertains or is authorized by law. A general authorization for the release of medical or other information is not sufficient for this purpose. Hospital accepts no responsibility if the information is made available to any other person, INCLUDING THE PATIENT. Interpretation Summary * Name: BEHZAD KAISER Study Date: 12/13/2016 07:03 AM BP: 115/68 mmHg * Patient Location: C.2E\S\E204\S\1 HR: 86 * : 1955 (M/d/yyyy) Gender: Female Height: 63 in * Age: 61 yrs Ethnicity: CA Weight: 146 lb * Ordering Physician: Clifford Pisano * Performed By: Lizet Garay * * Reason For Study: ELEVATED TROPONIN, ANASARCA * BSA: 1.7 m2 * -- Conclusions -- * 1. Normal LV size and wall thickness. * 2. Normal LV function. LVEF 55-60%. No regional wall motion abnormalities. * 3. Borderline RV enlargement, normal RV function. * 4. No significant valvular pathology. * 5. Mild pulmonary hypertension (Est PASP 40-45 mmHg, RA 8) * 6. Compared with prior study on 07/06/2016: No significant change. Procedure Details * A complete two-dimensional transthoracic echocardiogram was performed (2D, M-mode, Doppler and color flow Doppler). * A contrast injection of Definity was performed to improve assessment of LV function. * Contrast was injected into an intravenous site in the right arm. * One vial of Definity ultrasound contrast was diluted in normal saline to a total volume of 10 ml. A total of '3' ml of solution was administered during imaging. * Lot # [id number] of Definity utilized for procedure. * Expiration date 10/29. * The attending nurse who injected the contrast agent was DIAZ HOPKINS RN. Left Ventricle * The left ventricle is grossly normal size. * There is normal left ventricular wall thickness. * Ejection Fraction = 55-60%. * No regional wall motion abnormalities noted. Right Ventricle * Borderline right ventricular enlargement. * The right ventricular systolic function is normal as assessed by tricuspid annular plane systolic excursion (TAPSE) (normal >1.5 cm). Atria * The left atrial size is normal. * Right atrial size is normal. * No ASD detected; PFO is not assessed. Mitral Valve * The mitral valve is grossly normal. * There is no mitral valve stenosis. * There is trace mitral regurgitation. Tricuspid Valve * The tricuspid valve is not well visualized, but is grossly normal. * There is trace tricuspid regurgitation. * Estimated PASP 45-50 mmHg Aortic Valve * The aortic valve opens well. * The aortic valve is trileaflet. * No hemodynamically significant valvular aortic stenosis. * There is no significant aortic regurgitation. Pulmonic Valve * The pulmonary valve is inadequately visualized, but the Doppler data is adequate for interpretation. * There is no pulmonic valvular stenosis. * Trace pulmonic valvular regurgitation. Great Vessels * The aortic root and proximal ascending aorta are normal sized. Pericardium/Pleural * There is no pericardial effusion. * There is no pleural effusion. Great Vessels * IVC < 2.1, < 50% change with respiration MMode 2D Measurements and Calculations IVSd 0.76 cm IVSs 1.3 cm LVIDd 3.8 cm LVIDs 2.5 cm LVPWd 0.87 cm LVPWs 1.7 cm IVS/LVPW 0.87 FS 33.3 % EDV(Teich) 62.3 ml ESV(Teich) 23.2 ml EF(Teich) 62.7 % EDV(cubed) 55.2 ml ESV(cubed) 16.4 ml EF(cubed) 70.3 % % IVS thick 72.4 % % LVPW thick 91.9 % LV mass(C)d 88.8 grams LV mass(C)dI 52.5 grams/m\S\2 LV mass(C)s 127.5 grams LV mass(C)sI 75.4 grams/m\S\2 CO(Teich) 3.2 l/min CI(Teich) 1.9 l/min/m\S\2 SV(Teich) 39.1 ml SI(Teich) 23.1 ml/m\S\2 CO(cubed) 3.2 l/min CI(cubed) 1.9 l/min/m\S\2 SV(cubed) 38.9 ml SI(cubed) 23.0 ml/m\S\2 ACS 1.3 cm LA dimension 3.2 cm asc Aorta Diam 3.1 cm LVOT diam 2.1 cm LVOT area 3.5 cm\S\2 LVAd ap4 27.7 cm\S\2 LVLd ap4 7.6 cm EDV(MOD-sp4) 83.2 ml LVAs ap4 14.6 cm\S\2 LVLs ap4 6.2 cm ESV(MOD-sp4) 27.8 ml EF(MOD-sp4) 66.6 % LVAd ap2 30.1 cm\S\2 LVLd ap2 8.0 cm EDV(MOD-sp2) 94.1 ml LVAs ap2 15.1 cm\S\2 LVLs ap2 5.6 cm ESV(MOD-sp2) 33.3 ml EF(MOD-sp2) 64.6 % CO(MOD-sp4) 4.5 l/min CI(MOD-sp4) 2.7 l/min/m\S\2 SV(MOD-sp4) 55.4 ml SI(MOD-sp4) 32.7 ml/m\S\2 CO(MOD-sp2) 5.0 l/min CI(MOD-sp2) 2.9 l/min/m\S\2 SV(MOD-sp2) 60.8 ml SI(MOD-sp2) 35.9 ml/m\S\2 Doppler Measurements and Calculations MV E max jono 70.3 cm/sec MV A max jono 99.0 cm/sec MV E/A 0.71 MV dec time 0.13 sec Ao V2 max 167.0 cm/sec Ao max PG 11.1 mmHg Ao max PG (full) 6.6 mmHg MARIELENA(V,A) 2.2 cm\S\2 MARIELENA(V,D) 2.2 cm\S\2 LV V1 max PG 4.5 mmHg LV V1 max 106.2 cm/sec PA V2 max 61.1 cm/sec PA max PG 1.5 mmHg PI end-d jono 96.4 cm/sec TR max jono 262.9 cm/sec
[2016-12-13] MEDS ORDERED: PIPERACILL/TAZOBAC IV 3.375 GM in DEXTROSE 5% 100ML 100 ML IV SCH (12:00)
[2016-12-13 13:06] LABS: HEMATOCRIT 26.3 % (37-47); IG% 0.2 %; LYMPH % 1.6 %; LYMPH ABS # 0.13 K/uL (1.2-3.4); MEAN CELL VOLUME 76.2 fL (80-100); MEAN CORPUSCULAR HEMOGLOBIN 23.5 pg (25-34); MEAN CORPUSCULAR HGB CONC 30.8 g/dl (32-36); MEAN PLATELET VOLUME 9.8 fL (7.4-10.4); MONO % 1.5 %; NEUT % 96.7 %; PLATELET COUNT 303 K/uL (130-400); RED BLOOD COUNT 3.45 M/uL (4.2-5.4); WHITE BLOOD COUNT 8.06 K/uL (4.8-10.8)
[2016-12-13 13:33] LABS: ANISOCYTOSIS PRESENT; COMPLETE YES; HYPOCHROMIA PRESENT; MICROCYTOSIS PRESENT
[2016-12-13 13:39] LABS: BUN/CREATININE RATIO 8.3 (10-20); CALCIUM 9.5 mg/dl (8.5-10.1); CREATININE 0.77 mg/dl (0.60-1.20); MAGNESIUM 1.9 mg/dl (1.8-2.4); POTASSIUM 3.1 mmol/L (3.5-5.1)
[2016-12-13] MEDS ORDERED: KETOROLAC TROMETHAMINE 30 MG/ML VIAL IV ONE (14:15)
[2016-12-13] MEDS ORDERED: KETOROLAC TROMETHAMINE 15 MG/ML VIAL IM PRN (14:15)
--- NOTE | 2016-12-13 14:17 | Pulmonary Consultation ---
History General Date of Service: Dec 13, 2016. Stated Complaint: Anasarca, Elevated Troponin HPI The patient is a 61 year old female who presents to [facility] with complaints of Anasarca, Elevated Troponin. The patient's primary care provider is Chris Mei D.O.. 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 Her uterine carcinoma was initially diagnosed in 2014 and she is undergone significant treatment please refer to medical history report below. She continues currently on Opdivo therapy and started on palliative radiation therapy with Dr. Monica Momin for the right chest metastatic mass. Patient was acutely admitted to the hospital at this time for increasing bilateral lower extremity edema over the last 2 weeks. Along with her bilateral lower lobe/dependent edema she is noting severe 9-10 out of 10 pleurisy on the right hemithorax. At this time she denies: Fever, chills, rash, hemoptysis, sinusitis, meningitis, classic cardiac chest pain Echocardiogram 07/06/2016 LV: WNL, EF=55-60%, grade 1 diastolic dysfunction RV: WNL Echocardiogram 12/13/2016 LV: WNL, EF=55-60% RV: Borderline enlargement with PASP est= 40-45mmHg No significant changes when compared to a 07/06/2016 EKG 12/13/2016: Within normal limits Microbiology: Pleural effusion: 06/28/16: Cords negative staph Historian: patient, EMS Review of Systems Constitutional: reports: malaise, weakness Eyes: reports: no symptoms ENT: reports: no symptoms Cardiovascular: reports: no symptoms Respiratory: reports: other (pleurisy), shortness of breath Gastrointestinal: reports: constipation Genitourinary - Female: reports: dysuria Musculoskeletal: reports: joint pain, myalgias Integumentary: reports: dryness, itching Neurologic: reports: no symptoms Psychiatric: reports: no symptoms Endocrine: no symptoms Hematologic / Lymphatic: no symptoms Allergic / Immunologic: no symptoms Past Medical History Past Medical History: 1)metastatic uterine carcinoma (oncologist Pranav Santa/tommy Fatima) a.Diagnosed 2014 b.Abdominal hysterectomy and bilateral salpingo-oophorectomy c.Adjuvant XRT (pelvis) with combination carboplatin and paclitaxel (3 cycles) d.Upper lobe pulmonary metastasis December 2015 e.Large right sided pleural effusion/atelectasis and consolidation of the right lung 10 mm left upper lobe nodule f.Pleur-X catheter g.Opdivo treatment for metastatic disease h. Palliative XRT to the right hemithorax he is for pleural metastasis Past Surgical History: 1)Total abdominal hysterectomy and bilateral salpingo-oophorectomy 2)Ganglionic cyst removal 3)Biopsy right lower lobe lung nodule 4)Port-A-Cath placement 5)Pleur-X catheter Family History Cancer FH: abdominal aortic aneurysm repair Heart disease Aortic aneurysm Breast cancer Colon cancer Social History Employed by [employer] Negative for tobacco, alcohol or illicit drugs Hx Tobacco Use In Past Year?: No Smoking Status: Never Smoker Marital status: Housing status: lives alone Occupational Status: employed Immunizations History of Influenza Vaccine: Yes History of Tetanus Vaccine?: No History of Pneumococcal: No History of Hepatitis B Vaccine: No Allergies Coded Allergies: Oxycodone (Verified Adverse Reaction, Unknown, NAUSEA AND VOMITING WITH EVERY DOSE, 12/12/16) Current Medications Reported Home Medications Medications Dose Route/Sig Max Daily Dose Days Date Category Duragesic (Fentanyl) 50 Mcg Tdsy 50 Mcg TD [id number] 11/25/16 Reported Tramadol HCl 50 Mg Tab 50 Mg PO Q4H PRN 06/30/16 Rx Zofran Odt (Ondansetron HCl) 8 Mg Soltab 8 Mg SL Q6H PRN 06/30/16 Rx Multivitamin (Multivitamins) Tab 1 Tab PO QAM 12/25/15 Reported Tylenol (Acetaminophen) 325 Mg Tab 650 Mg PO Q4-6H PRN 01/08/15 Reported Calcium Citrate + D (Calcium Citrate-Vitamin D) 1 Tab Tab 1 Tab PO TID 01/08/15 Reported Physical Physical Exam Vital Signs: Date Time Temp Pulse Resp B/P Pulse Ox O2 Delivery O2 Flow Rate FiO2 12/13/16 12:00 Nasal Cannula 2.0 12/13/16 11:59 36.6 108 16 124/66 95 Nasal Cannula 12/13/16 08:48 82 18 95 Nasal Cannula 2.0 12/13/16 08:40 36.9 85 16 122/71 94 Nasal Cannula 12/13/16 08:00 Nasal Cannula 2.0 12/13/16 04:00 98 Nasal Cannula 2.0 12/13/16 03:57 36.6 86 18 115/68 98 Nasal Cannula 2.0 12/13/16 00:00 98 Nasal Cannula 2.0 12/12/16 23:56 36.5 86 18 115/70 98 Nasal Cannula 2.0 12/12/16 21:09 36.6 82 20 120/70 99 Nasal Cannula 2.0 12/12/16 20:14 89 18 112/77 98 12/12/16 20:12 88 12/12/16 19:01 86 121/66 98 Nasal Cannula 2.0 12/12/16 17:50 87 23 96 12/12/16 17:45 90 30 96 12/12/16 17:40 91 22 96 12/12/16 17:35 88 27 96 12/12/16 17:30 90 28 96 12/12/16 17:28 110/61 12/12/16 17:25 96 30 95 12/12/16 17:20 92 26 96 12/12/16 17:15 94 26 95 12/12/16 17:10 93 24 96 12/12/16 17:05 94 28 94 12/12/16 17:00 94 30 96 12/12/16 16:58 113/61 12/12/16 16:55 95 30 96 12/12/16 16:50 90 26 96 12/12/16 16:45 90 32 96 Nasal Cannula 2.0 12/12/16 16:40 91 21 90 12/12/16 16:35 87 31 12/12/16 16:30 96 26 12/12/16 16:28 113/99 12/12/16 16:25 85 20 94 12/12/16 16:20 93 29 95 12/12/16 16:15 81 26 99 Nasal Cannula 3.0 12/12/16 16:10 91 25 86 Room Air 12/12/16 16:09 83 12/12/16 16:03 86 22 119/69 90 Room Air 12/12/16 15:58 119/69 12/12/16 14:59 36.8 101 22 112/73 89 Room Air General Appearance: moderate distress Head: NORMOCEPHALIC, ATRAUMATIC Eyes: PERRLA, NO DISCHARGE, EOMI, SCLERAE NORMAL, CONJUNCTIVAE NORMAL ENT: NORMAL EAR EXAM, NORMAL NASAL EXAM, NORMAL MOUTH EXAM, NORMAL THROAT EXAM , NORMAL DENTAL EXAM Neck: NORMAL RANGE OF MOTION, NO TENDERNESS, TRACHEA MIDLINE, NO STRIDOR Respiratory: other (decreased breath sounds right hemithorax with minimal air movement in the apical anterior subsegment, crackles appreciated posterior left hemithorax/induration with mild erythema and palpable mass along the posterior axillary line of the right hemithorax) Cardiovasular: REGULAR RATE/RHYTHM, NORMAL S1S2, NO M/G/R, NO MURMUR, NO GALLOP , NO RUB Abdomen: NON TENDER, NORMAL BOWEL SOUNDS, NO REBOUND, NO MASSES, NO GUARDING Genitourinary - Female: EXTERNAL GENITALIA NORMAL Back: NORMAL INSPECTION, NO MIDLINE TENDERNESS, NO CVA TENDERNESS Upper Extremities: NO EDEMA Lower Extremities: edema Edema: Bilateral UE (2+) Pulses: carotid (R) (2+), carotid (L), dorsalis pedis (R) (1+), dorsalis pedis (L) (1+) Neuro: ALERT, ORIENTED x 3, NORMAL MOTOR EXAM, NORMAL SENSATION Reflexes: biceps (R) (2+), bicpes (L) (2+) Babinski Testing: right (downgoing), left (downgoing) Psychiatric: NO SUICIDAL IDEATION, depressed Diagnostics Labs Results Past 24 Hours Test 12/12/16 15:43 12/12/16 16:19 12/12/16 16:43 12/12/16 21:40 Range/Units White Blood Count 6.98 4.8-10.8 K/uL Red Blood Count 3.87 4.2-5.4 M/uL Hemoglobin 9.0 12.0-16.0 g/dL Hematocrit 29.4 37-47 % Mean Corpuscular Volume 76.0 80-100 fL Mean Corpuscular Hemoglobin 23.3 25-34 pg Mean Corpuscular Hemoglobin Concent 30.6 32-36 g/dl Platelet Count 310 130-400 K/uL Mean Platelet Volume 9.1 7.4-10.4 fL Neutrophils (%) (Auto) 84.9 % Lymphocytes (%) (Auto) 2.3 % Monocytes (%) (Auto) 11.6 % Eosinophils (%) (Auto) 0.6 % Basophils (%) (Auto) 0.3 % Neutrophils # (Auto) 5.93 1.4-6.5 K/uL Lymphocytes # (Auto) 0.16 1.2-3.4 K/uL Monocytes # (Auto) 0.81 0.11-0.59 K/uL Eosinophils # (Auto) 0.04 0-0.5 K/uL Basophils # (Auto) 0.02 0-0.2 K/uL RDW Standard Deviation 53.6 36.4-46.3 fL RDW Coefficient of Variation 19.4 11.5-14.5 % Immature Granulocyte % (Auto) 0.3 % Immature Granulocyte # (Auto) 0.02 0.00-0.02 K/uL Prothrombin Time 13.5 9.0-12.0 SECONDS Prothromb Time International Ratio 1.3 0.9-1.1 Activated Partial Thromboplast Time 30.5 21.0-31.0 SECONDS Partial Thromboplastin Ratio 1.2 Urine Color DK YELLOW Urine Appearance CLOUDY CLEAR Urine pH 6.0 4.5-7.5 Urine Specific [place] 1.018 1.000-1.030 Urine Protein TRACE NEG Urine Glucose (UA) NEG NEG Urine Ketones NEG NEG Urine Occult Blood NEG NEG Urine Nitrite POS NEG Urine Bilirubin NEG NEG Urine Urobilinogen POS NEG Urine Leukocyte Esterase MODERATE NEG Urine WBC (Auto) >30 0-5 /hpf Urine RBC (Auto) 0-4 0-4 /hpf Urine Hyaline Casts (Auto) 0 0-5 /lpf Urine Epithelial Cells (Auto) 5-10 0-5 /lpf Urine Bacteria (Auto) 1+ NEG Sodium Level 129 136-145 mmol/L Potassium Level 3.9 3.5-5.1 mmol/L Chloride Level 88 98-107 mmol/L Carbon Dioxide Level 31 21-32 mmol/L Anion Gap 10.0 3-11 mmol/L Blood Urea Nitrogen 6 7-18 mg/dl Creatinine 0.54 0.60-1.20 mg/dl Est Creatinine Clear Calc Drug Dose 102.8 ml/min Estimated GFR () 119.7 Estimated GFR (Non- 103.3 BUN/Creatinine Ratio 11.6 10-20 Random Glucose 87 70-99 mg/dl Calcium Level 9.8 8.5-10.1 mg/dl Total Bilirubin 0.7 0.2-1 mg/dl Direct Bilirubin 0.3 0-0.2 mg/dl Aspartate Amino Transf (AST/SGOT) 30 15-37 U/L Alanine Aminotransferase (ALT/SGPT) 17 12-78 U/L Alkaline Phosphatase 130 45-117 U/L Total Creatine Kinase 24 22 26-192 U/L Creatine Kinase MB 1.0 0.5 0.5-3.6 ng/ml Creatine Kinase MB Ratio 4.2 2.3 0-3.0 Troponin I 0.063 0.059 0-0.045 ng/ml Pro-B-Type Natriuretic Peptide 159 0-900 pg/ml Total Protein 7.0 6.4-8.2 gm/dl Albumin 2.5 3.4-5.0 gm/dl Lipase 76 73-393 U/L Influenza Type A Antigen Neg for Influ A NEG Influenza Type B Antigen Neg for Influ B NEG Osmolality 266 280-300 mOsm/kg Test 12/12/16 23:25 12/13/16 03:58 12/13/16 04:28 12/13/16 12:30 Range/Units Urine Osmolality 251 500-800 mOms/kg White Blood Count 5.72 8.06 4.8-10.8 K/uL Red Blood Count 3.25 3.45 4.2-5.4 M/uL Hemoglobin 7.5 7.8 8.1 12.0-16.0 g/dL Hematocrit 24.2 25.1 26.3 37-47 % Mean Corpuscular Volume 74.5 76.2 80-100 fL Mean Corpuscular Hemoglobin 23.1 23.5 25-34 pg Mean Corpuscular Hemoglobin Concent 31.0 30.8 32-36 g/dl Platelet Count 239 303 130-400 K/uL Mean Platelet Volume 9.4 9.8 7.4-10.4 fL Neutrophils (%) (Auto) 83.9 96.7 % Lymphocytes (%) (Auto) 8.9 1.6 % Monocytes (%) (Auto) 5.2 1.5 % Eosinophils (%) (Auto) 1.4 0.0 % Basophils (%) (Auto) 0.3 0.0 % Neutrophils # (Auto) 4.79 7.79 1.4-6.5 K/uL Lymphocytes # (Auto) 0.51 0.13 1.2-3.4 K/uL Monocytes # (Auto) 0.30 0.12 0.11-0.59 K/uL Eosinophils # (Auto) 0.08 0.00 0-0.5 K/uL Basophils # (Auto) 0.02 0.00 0-0.2 K/uL RDW Standard Deviation 52.3 54.2 36.4-46.3 fL RDW Coefficient of Variation 19.2 19.4 11.5-14.5 % Immature Granulocyte % (Auto) 0.3 0.2 % Immature Granulocyte # (Auto) 0.02 0.02 0.00-0.02 K/uL Red Blood Cell Morphology Unremarkable Prothrombin Time 14.4 9.0-12.0 SECONDS Prothromb Time International Ratio 1.3 0.9-1.1 Activated Partial Thromboplast Time 32.4 21.0-31.0 SECONDS Partial Thromboplastin Ratio 1.2 Sodium Level 133 131 136-145 mmol/L Potassium Level 3.8 3.1 3.5-5.1 mmol/L Chloride Level 90 86 98-107 mmol/L Carbon Dioxide Level 34 33 21-32 mmol/L Anion Gap 9.0 12.0 3-11 mmol/L Blood Urea Nitrogen 5 6 7-18 mg/dl Creatinine 0.43 0.77 0.60-1.20 mg/dl Est Creatinine Clear Calc Drug Dose 128.7 71.1 ml/min Estimated GFR () 129.0 98.0 Estimated GFR (Non- 111.3 84.5 BUN/Creatinine Ratio 11.5 8.3 10-20 Random Glucose 89 247 70-99 mg/dl Calcium Level 9.2 9.5 8.5-10.1 mg/dl Magnesium Level 1.2 1.9 1.8-2.4 mg/dl Total Bilirubin 0.6 0.2-1 mg/dl Direct Bilirubin 0.3 0-0.2 mg/dl Aspartate Amino Transf (AST/SGOT) 25 15-37 U/L Alanine Aminotransferase (ALT/SGPT) 14 12-78 U/L Alkaline Phosphatase 107 45-117 U/L Total Creatine Kinase 17 20 26-192 U/L Creatine Kinase MB 0.7 0.8 0.5-3.6 ng/ml Creatine Kinase MB Ratio 4.1 4.0 0-3.0 Troponin I 0.066 0.072 0-0.045 ng/ml Total Protein 6.0 6.4-8.2 gm/dl Albumin 2.4 3.4-5.0 gm/dl Hepatitis C Antibody Screen NEG NEG Hypochromasia PRESENT Anisocytosis PRESENT Microcytosis PRESENT Microbiology Results 12/12/16 Urine Culture, Received Pending Diagnostic Radiology #1 bilateral lower extremity DVT studies: No evidence of DVT #2 KUB stool within the colon signs of pathological obstruction #3 chest x-ray report in place 70% opacification of the right hemithorax with aeration appreciated in the right upper lobe no acute changes when compared to increasing opacification as compared to 10/13/2016 EKG Interpretation: NORMAL EKG Impression Assessment and Plan 61-year-old female with metastatic uterine carcinoma currently undergoing salvage chemotherapy with palliative XRT: #1 Pleurisy: Patient with metastatic disease to her pleura status post IPC currently in severe pain. She is currently on Duragesic patch. I will give her a trial of Toradol and have spoken to patient's primary team for pain management consultation. #2 Pleural Effusion: At this time there is no active intervention that can be done for the patient's pleural effusion. I do not believe the palmar service can benefit this patient any further please reconsult if necessary.
[2016-12-13] MEDS ORDERED: POTASSIUM CHLORIDE 20 MEQ TABCR PO ONE (15:00)
[2016-12-13] MEDS: SULFAMETHOXAZOLE/TRIMETHOPRIM DS 800/160MG TAB PO SCH ×2 (15:49→19:39)
[2016-12-13] MEDS ORDERED: VANCOMYCIN INJ 1,000 MG in SODIUM CHLORIDE 0.9% 250ML 250 ML IV SCH (16:00)
--- NOTE | 2016-12-13 17:39 | Hospitalist Progress Note ---
Hospitalist Progress Note Date of Service Dec 13, 2016. Subjective Pt evaluation today including: conversation w/ patient, conversation w/ family , physical exam, chart review, lab review, review of studies, conversation w/ risk assessment consultant (Pulm, Cardio, Rad Onc), review of inpatient medication list PO Intake: clarence po Pt feeling much better now after receiving Toradol. Her right sided chest wall pain has really increased with starting Palliative XRT due to positioning of her right arm above her head. She is having to take the tramadol q4h at home lately. SHe has not moved her bowels in 2 days and had a lot of stool on KUB. She reports her leg swelling is much improved. Constitutional: No fever Respiratory: No shortness of breath Cardiovascular: + chest pain Abdomen: + constipation, No pain All Other Systems: Reviewed and Negative Objective Vital Signs Date Time Temp Pulse Resp B/P Pulse Ox O2 Delivery O2 Flow Rate FiO2 12/13/16 16:00 Nasal Cannula 2.0 12/13/16 14:05 87 18 95 Nasal Cannula 2.0 12/13/16 12:00 Nasal Cannula 2.0 12/13/16 11:59 36.6 108 16 124/66 95 Nasal Cannula 12/13/16 08:48 82 18 95 Nasal Cannula 2.0 12/13/16 08:40 36.9 85 16 122/71 94 Nasal Cannula 12/13/16 08:00 Nasal Cannula 2.0 12/13/16 04:00 98 Nasal Cannula 2.0 12/13/16 03:57 36.6 86 18 115/68 98 Nasal Cannula 2.0 12/13/16 00:00 98 Nasal Cannula 2.0 12/12/16 23:56 36.5 86 18 115/70 98 Nasal Cannula 2.0 12/12/16 21:09 36.6 82 20 120/70 99 Nasal Cannula 2.0 12/12/16 20:14 89 18 112/77 98 12/12/16 20:12 88 12/12/16 19:01 86 121/66 98 Nasal Cannula 2.0 12/12/16 17:50 87 23 96 12/12/16 17:45 90 30 96 12/12/16 17:40 91 22 96 12/12/16 17:35 88 27 96 12/12/16 17:30 90 28 96 12/12/16 17:28 110/61 12/12/16 17:25 96 30 95 12/12/16 17:20 92 26 96 Physical Exam General Appearance: no apparent distress, + thin Eyes: normal inspection, sclerae normal Neck: trachea midline Respiratory/Chest: no respiratory distress, no accessory muscle use, + decreased breath sounds (on right hemothorax, left lung clear) Cardiovascular: regular rate, rhythm, no gallop, no murmur, + pertinent finding (trace pitting edema LEs bilat, no tenderness) Abdomen: non tender, soft (with palpable stool in colon), no pulsatile mass Extremities: non-tender Neurologic/Psychiatric: alert, normal mood/affect, oriented x 3 Skin: + pertinent finding (right chest wall into back with large palpable mass with nodular masses overlying in midaxillary line, some skin changes with purple spider veins) Laboratory Results Last 24 Hours Test 12/12/16 21:40 12/12/16 23:25 12/13/16 03:58 12/13/16 04:28 Total Creatine Kinase 22 U/L 17 U/L Creatine Kinase MB 0.5 ng/ml 0.7 ng/ml Creatine Kinase MB Ratio 2.3 4.1 Troponin I 0.059 ng/ml 0.066 ng/ml Urine Osmolality 251 mOms/kg White Blood Count 5.72 K/uL Red Blood Count 3.25 M/uL Hemoglobin 7.5 g/dL 7.8 g/dL Hematocrit 24.2 % 25.1 % Mean Corpuscular Volume 74.5 fL Mean Corpuscular Hemoglobin 23.1 pg Mean Corpuscular Hemoglobin Concent 31.0 g/dl Platelet Count 239 K/uL Mean Platelet Volume 9.4 fL Neutrophils (%) (Auto) 83.9 % Lymphocytes (%) (Auto) 8.9 % Monocytes (%) (Auto) 5.2 % Eosinophils (%) (Auto) 1.4 % Basophils (%) (Auto) 0.3 % Neutrophils # (Auto) 4.79 K/uL Lymphocytes # (Auto) 0.51 K/uL Monocytes # (Auto) 0.30 K/uL Eosinophils # (Auto) 0.08 K/uL Basophils # (Auto) 0.02 K/uL RDW Standard Deviation 52.3 fL RDW Coefficient of Variation 19.2 % Immature Granulocyte % (Auto) 0.3 % Immature Granulocyte # (Auto) 0.02 K/uL Red Blood Cell Morphology Unremarkable Prothrombin Time 14.4 SECONDS Prothromb Time International Ratio 1.3 Activated Partial Thromboplast Time 32.4 SECONDS Partial Thromboplastin Ratio 1.2 Sodium Level 133 mmol/L Potassium Level 3.8 mmol/L Chloride Level 90 mmol/L Carbon Dioxide Level 34 mmol/L Anion Gap 9.0 mmol/L Blood Urea Nitrogen 5 mg/dl Creatinine 0.43 mg/dl Est Creatinine Clear Calc Drug Dose 128.7 ml/min Estimated GFR () 129.0 Estimated GFR (Non- 111.3 BUN/Creatinine Ratio 11.5 Random Glucose 89 mg/dl Calcium Level 9.2 mg/dl Magnesium Level 1.2 mg/dl Total Bilirubin 0.6 mg/dl Direct Bilirubin 0.3 mg/dl Aspartate Amino Transf (AST/SGOT) 25 U/L Alanine Aminotransferase (ALT/SGPT) 14 U/L Alkaline Phosphatase 107 U/L Total Protein 6.0 gm/dl Albumin 2.4 gm/dl Hepatitis C Antibody Screen NEG Test 12/13/16 12:30 White Blood Count 8.06 K/uL Red Blood Count 3.45 M/uL Hemoglobin 8.1 g/dL Hematocrit 26.3 % Mean Corpuscular Volume 76.2 fL Mean Corpuscular Hemoglobin 23.5 pg Mean Corpuscular Hemoglobin Concent 30.8 g/dl Platelet Count 303 K/uL Mean Platelet Volume 9.8 fL Neutrophils (%) (Auto) 96.7 % Lymphocytes (%) (Auto) 1.6 % Monocytes (%) (Auto) 1.5 % Eosinophils (%) (Auto) 0.0 % Basophils (%) (Auto) 0.0 % Neutrophils # (Auto) 7.79 K/uL Lymphocytes # (Auto) 0.13 K/uL Monocytes # (Auto) 0.12 K/uL Eosinophils # (Auto) 0.00 K/uL Basophils # (Auto) 0.00 K/uL RDW Standard Deviation 54.2 fL RDW Coefficient of Variation 19.4 % Immature Granulocyte % (Auto) 0.2 % Immature Granulocyte # (Auto) 0.02 K/uL Hypochromasia PRESENT Anisocytosis PRESENT Microcytosis PRESENT Sodium Level 131 mmol/L Potassium Level 3.1 mmol/L Chloride Level 86 mmol/L Carbon Dioxide Level 33 mmol/L Anion Gap 12.0 mmol/L Blood Urea Nitrogen 6 mg/dl Creatinine 0.77 mg/dl Est Creatinine Clear Calc Drug Dose 71.1 ml/min Estimated GFR () 98.0 Estimated GFR (Non- 84.5 BUN/Creatinine Ratio 8.3 Random Glucose 247 mg/dl Calcium Level 9.5 mg/dl Magnesium Level 1.9 mg/dl Total Creatine Kinase 20 U/L Creatine Kinase MB 0.8 ng/ml Creatine Kinase MB Ratio 4.0 Troponin I 0.072 ng/ml Assessment and Plan Pt is a 61 yo female with metastatic uterine carcinosarcoma involving the right chest wall which is causing significant pain. The patient is currently being treated with Opdivo underneath the supervision of Dr. Pranav Santa and Libra Fatima, as well as Palliative XRT to her right chest wall mass. She presented to the ER at the direction of her Radiation Oncologist yesterday after c/o 2 weeks of progressively worsening lower extremity edema and pain, generalized body aches, shortness of breath, and headache. She was hypoxic with POx 89% on RA on presentation. She was admitted to r/o CHF as a cause although her proBNP was normal. She did have a mildly elevated troponin that remained stable. There was also initially a question of whether she may have a post-obstructive type of PNA due to elevated WBC count and CXR findings. She was placed on Vancomycin and Zosyn. Doppler of the lower extremities bilaterally was negative for DVT. Lower extremity edema/elevated troponin/hypoalbuminemia/Chronic diastolic CHF-- -admitted to the telemetry unit -serial cardiac enzymes elevated mildly but stable are evidence of demand ischemia due to significant pulmonary process more than likely. Cardiology saw patient and does not think this is acute CHF, and agreed that troponin is not overly concerning given her underlying metastatic disease. ECHO showed: * 1. Normal LV size and wall thickness. * 2. Normal LV function. LVEF 55-60%. No regional wall motion abnormalities. * 3. Borderline RV enlargement, normal RV function. * 4. No significant valvular pathology. * 5. Mild pulmonary hypertension (Est PASP 40-45 mmHg, RA 8) * 6. Compared with prior study on 07/06/2016: No significant change. -Initially she was placed on albumin with Lasix IV every 6 hours but then this was stopped. She did have diuresis and her LE edema improved. Potassium replaced. Hypoxia/right lung and chest wall mass--hypoxia did improve with diuresis but may be due to hypoalbuminemia and improved with IV albumin. Unfortunately has metastatic disease in the lung and chest wall. Pain is exacerbated in right chest wall due to positioning for XRT, requiring increased doses of tramadol. IV toradol helped a lot here. -continue Opdivo and XRT as scheduled -no further need for diuretics -encouraged po nutrition for protein intake -f/u with XRT and Med Oncology -increase Fentanyl patch to 75 mcg -bowel regimen for constipation -stop Vanc and Zosyn as no underlying PNA -Appreciate Pulm recommendations UTI--UA likely contaminated sample, Ur cx growing corynebacterium, skin fabio -finish 3 days of Bactrim po Hyponatremia Na+ 131--> 133 today with diuresis, with hypervolemia and hypoalbuminemia 3.0 --albumin with Lasix IV as noted above. We'll follow serial BMP and magnesium levels. -replaced Mg and K+ Anemia-Hgb 7.8-->8.1, likely side effect of chemo vs anemia of chronic disease -follow and transfuse if hgb<7-8 and symptomatic Proph-SCDs Dispo- FULL CODE -to home tomorrow after XRT
[2016-12-13] MEDS ORDERED: FENTANYL PATCH REMOVE & WASTE SCH (18:00)
[2016-12-13] MEDS ORDERED: FENTANYL 75 MCG/HR TDSY TD SCH (18:00)
[2016-12-13] MEDS ORDERED: POLYETHYLENE (MIRALAX) 17 GM PACK PO ONE (18:15)
[2016-12-13] MEDS ORDERED: KETOROLAC TROMETHAMINE 15 MG/ML VIAL IV. PRN (20:15)
--- NOTE | 2016-12-13 23:27 | CARDIOLOGY CONSULTATION ---
DATE OF CONSULTATION: 12/13/2016 AGE: 61. REASON FOR CONSULTATION: Minimally elevated troponin, question heart failure. HISTORY OF PRESENT ILLNESS: Mrs. Sinha is a very pleasant 61-year-old woman with a history of metastatic uterine carcinoma, who was admitted in the setting of worsening lower extremity edema and shortness of breath. Cardiology consult was for consideration of heart failure in the setting of minimally elevated troponin. The patient was initially diagnosed with uterine cancer back in 2014. She is now status post total abdominal hysterectomy and bilateral salpingo-oophorectomy. She has also received adjuvant radiation therapy as well as chemotherapy followed by Dr. Santa. She was noted to have pulmonary mets approximately one year ago involving the right upper lobe of her lung. She later underwent a PleurX catheter for drainage of pleural effusion. More recently, she developed severe right-sided chest wall pain for which she started therapy earlier this month with palliative radiation. She states she has had approximately 3 treatments thus far. Over the last 2 weeks, the patient has noted that she has increased swelling in her lower extremities. She has also noticed slightly worsened shortness of breath. The patient states that with walking around her home before, she could do it without stopping, without significant dyspnea but however, over the last several days, she does become short of breath walking across the room. She denies any chest pain other than her right-sided chest wall. She denies any significant palpitations or presyncope. She states stable orthopnea for years. She does endorse that since beginning radiation therapy she has had a very poor appetite and is not eating much at all. The patient presented to the Emergency Department yesterday and was afebrile, hemodynamically stable and saturating in the high 90s on 2 liters. Chest x-ray was largely unchanged from prior. Initial laboratory workup was remarkable for anemia with a hemoglobin now down to 7.5, a minimally elevated troponin of 0.06 and a NT-proBNP of 139. EKG was within normal limits. She was started on IV diuretics and has received 2 doses of 40 of IV Lasix with albumin. With that, she is down almost 2 liters. She has been monitored on telemetry and has had no significant events. PAST MEDICAL HISTORY: 1. Prior metastatic uterine cancer status post total abdominal hysterectomy, chemotherapy, radiation, now receiving palliative chemotherapy to her metastatic lesions in her right chest. 2. Prior pleural effusion status post PleurX catheter. FAMILY HISTORY: No history of premature coronary artery disease or sudden cardiac . SOCIAL HISTORY: She is a never smoker. She is . She lives alone. Denies any alcohol or illicit drug use. ALLERGIES: OXYCODONE. HOME MEDICATIONS: Include, calcium citrate, vitamin D, fentanyl patch, multivitamin, also takes Tylenol, Zofran and tramadol p.r.n. REVIEW OF SYSTEMS: A 10-point review of systems completed and otherwise negative unless stated in the HPI. PHYSICAL EXAMINATION: VITAL SIGNS: Temperature today 36.6, heart rate is 108. She is saturating 95% on 2 liters, her blood pressure is 124/66. GENERAL: The patient appears chronically ill, but in no acute distress. HEENT: Sclerae anicteric. Oropharynx clear. Mucous membranes are moist. NECK: Supple. She has no jugular venous distention. LUNGS: She has some decreased breath sounds at the right base, otherwise are clear. CARDIAC: She is tachycardic, but regular with a faint 1/6 systolic ejection murmur heard best at the left upper sternal border. ABDOMEN: Soft, nontender, nondistended with positive bowel sounds. EXTREMITIES: Warm. She has 1-2+ lower extremity edema to her mid shins. SKIN: Shows no significant rashes or lesions. NEUROLOGIC: Cranial nerves II-XII are grossly intact. Remainder of exam is nonfocal. PSYCHIATRIC: She is alert and oriented x3. Mood is appropriate. LABORATORY DATA: Sodium 133, potassium 3.8, BUN 5, creatinine of 0.4. Her LFTs were within normal limits. She had a magnesium of 1.2. Her albumin was low at 2.4. Her troponins have remained at 0.06, CK-MB has remained at 1 or less. Flu was negative. UA was grossly positive and imaging includes a KUB, which was remarkable for well-formed stool, chest x-ray which was unchanged from prior with pleural parenchymal opacification of the right lung and venous duplex showed no evidence of lower extremity DVT. EKG showed normal sinus rhythm with borderline left axis deviation. Echocardiogram completed today showed normal LV size and function with no regional wall motion abnormalities. There was borderline RV enlargement, but normal RV function and no significant valvular pathology, borderline to mild pulmonary hypertension with an estimated PA pressure of 40-45. Her RA pressure was estimated to be around 8 and her overall echo was not significantly changed from prior study in June 2016. IMPRESSION AND PLAN: 1. Dyspnea. 2. Lower extremity edema. 3. Metastatic uterine cancer, undergoing palliative therapy to right chest wall lesion. 4. Anemia. 5. Urinary tract infection. 6. Minimally elevated troponin. I reviewed patient's echocardiogram and no new evidence of significant LV dysfunction on recent study. Of note, her lab work is most remarkable for a BNP that was normal at 159 and an albumin of 2.4. Based on these findings and exam, suspicion for patient's current symptoms being due to heart failure is low. Her minimal troponin elevation likely secondary to demand versus heart strain in the setting of her acute illness. No need for further cardiac testing. Would continue diuretics per primary team, but otherwise no significant changes in management from a cardiac standpoint. We will follow from the periphery. Please contact with any specific questions. Thank you for allowing us to participate in the care of this patient. OLGA
[2016-12-14] VITALS (14 sets, daily range): BP systolic 112–129; BP diastolic 62–74; PULSE 71–107; TEMP 36.4–36.8; O2SAT 88–99
[2016-12-14] MEDS: CHECK FENTANYL PATCH PLACEMENT SCH ×3 (00:16→16:18)
[2016-12-14] MEDS: IPRATROPIUM BROMIDE NEB SOLN 0.02% 2.5 ML VIAL INH SCH ×3 (02:22→14:20)
[2016-12-14] MEDS: LEVALBUTEROL 1.25MG/0.5ML NEB INH SCH ×3 (02:22→14:20)
[2016-12-14 06:42] LABS: BASO % 0.1 %; BASO ABS # 0.01 K/uL (0-0.2); EOS % 0.1 %; HEMATOCRIT 24.6 % (37-47); IG% 0.1 %; LYMPH % 5.9 %; MEAN CELL VOLUME 76.2 fL (80-100); MEAN CORPUSCULAR HEMOGLOBIN 23.2 pg (25-34); MEAN CORPUSCULAR HGB CONC 30.5 g/dl (32-36); MEAN PLATELET VOLUME 9.6 fL (7.4-10.4); MONO % 7.6 %; NEUT % 86.2 %; PLATELET COUNT 292 K/uL (130-400); RED BLOOD COUNT 3.23 M/uL (4.2-5.4)
[2016-12-14 07:03] LABS: ANISOCYTOSIS PRESENT; COMPLETE YES; HYPOCHROMIA PRESENT
[2016-12-14 07:17] LABS: BUN/CREATININE RATIO 10.8 (10-20); CALCIUM 10.2 mg/dl (8.5-10.1); CREATININE 0.61 mg/dl (0.60-1.20); MAGNESIUM 1.6 mg/dl (1.8-2.4)
[2016-12-14] MEDS: ONDANSETRON INJ 2 MG/ML 2 ML VIAL IV PRN ×2 (07:43→16:16)
[2016-12-14] MEDS: CALCIUM 600MG + VIT D 400 IU TAB PO SCH ×2 (07:43→12:00)
[2016-12-14] MEDS ORDERED: ACETAMINOPHEN 325 MG TAB PO STA (08:46)
[2016-12-14] MEDS ORDERED: POLYETHYLENE (MIRALAX) 17 GM PACK PO SCH (09:00)
[2016-12-14] MEDS: MULTIVITAMIN TAB PO SCH (09:01)
[2016-12-14] MEDS: SULFAMETHOXAZOLE/TRIMETHOPRIM DS 800/160MG TAB PO SCH (09:01)
[2016-12-14] MEDS: GUAIFENESIN 600 MG TABCR PO SCH (09:02)
[2016-12-14] MEDS ORDERED: SULF-183 PO (09:08)
[2016-12-14] MEDS ORDERED: FNTTP50 TD (09:08)
[2016-12-14] MEDS ORDERED: MRLP17 PO (09:08)
--- NOTE | 2016-12-14 09:21 | Discharge Instructions ---
Discharge Instructions Admission Reason for Admission: Lower extremity edema, Elevated Troponin Discharge Discharge Diagnosis / Problem: Lower extremity edema, demand ischemia Discharge Goals Goal(s): Improve disease control, Therapeutic intervention Activity Recommendations Activity Limitations: as noted below Exercise/Sports Limitations: as tolerated Shower/Bathe: no limitations . Instructions / Follow-Up Instructions / Follow-Up You were admitted with leg swelling and generalized body aches, weakness. You were seen by Pulmonology and Cardiology and determined that you do not have congestive heart failure. Your legs are most likely swollen due to low protein levels from poor nutrition. You were given albumin (protein) and lasix (a diuretic) through the IV to help with your swelling which did improve. Your pain in the right side of your chest has been worse and your Fentanyl patch dose was increased. You had a mild urinary tract infection and should take 2 more days of antibiotics for this. You were also transfused 1 unit of blood for your anemia related to chemotherapy. You should try to take in extra protein in your diet and Boost shakes 1-2 times per day if possible. Please follow up with Radiation Oncology daily M-F as scheduled, and with Medical Oncology next week as scheduled. You should also follow up with your PCP within 1 week. Current Hospital Diet Patient's current hospital diet: AHA Diet (Heart Healthy) Discharge Diet Recommended Diet: AHA Diet (Heart Healthy) Procedures Procedures Performed: Venous Doppler lower extremities-negative for blood clot Chest xray Abdomen xray Pending Studies Studies pending at discharge: no Work Instructions Return To Work: after follow-up (You should remain out of work at least through 12/24/16) Medical Emergencies . Who to Call and When: Medical Emergencies: If at any time you feel your situation is an emergency, please call 911 immediately. . Non-Emergent Contact Non-Emergency issues call your: Primary Care Provider, Oncologist Call Non-Emergent contact if: you have a fever, your pain is not controlled, your pain is worsening, your pain is unusual for you, your pain is concerning you, you have any medication questions . . "Provider Documentation" section prepared by Dinorah Elizondo. VTE Core Measure Inpt VTE Proph given/why not?: SCD's
[2016-12-14] MEDS ORDERED: FURO-85 PO (09:22)
--- NOTE | 2016-12-14 09:28 | Pulmonology Progress Note ---
Pulmonary Progress Note Date of Service Dec 14, 2016. Attending Alon Sky Subjective Patient with better pain control today able to ambulate and take bigger breaths Objective Patient is able site up today and fully expand her thoracic cavity with minimal tachypnea during our conversation PE: VS: reviewed and SaO2 stable on 1-2Lnc RESP: no BS on the right tod-thorax with mild wheezing on the left CARD: distant HS but RRR EXT: (b) lower ext edema 1+ Assessment & Plan 61-year-old female with metastatic uterine carcinoma currently undergoing salvage chemotherapy with palliative XRT: #1 Pleurisy: Toradol and fentanyl patch has patients pain better controlled at this time. I suggest we have the patient f/u with pain clinic as poor pain control will increase her risk for atelectasis and secondary pneumonias #2 Oxygen: we should perform a 2-step to evaluate our patient's possible need for oxygen support. Data Medications: Current Inpatient Medications Medications (Trade) Dose Ordered Sig/Pancho Route Start Time Stop Time Status Last Admin Dose Admin Acetaminophen (Tylenol Tab) 650 mg Q4H PRN PO 12/12/16 20:15 01/11/17 20:14 Zolpidem Tartrate (Ambien Tab) 5 mg HSZ PRN PO 12/12/16 20:15 01/11/17 20:14 Multivitamins (Multivitamin Tab) 1 tab QAM PO 12/13/16 09:00 01/12/17 08:59 12/14/16 09:01 1 TAB Tramadol HCl (Ultram Tab) 50 mg Q4H PRN PO 12/12/16 20:15 01/11/17 20:14 Calcium/Vitamin D (Caltrate Plus Tab) 1 tab TIDM PO 12/13/16 07:30 01/12/17 07:29 12/14/16 07:43 1 TAB Miscellaneous Information (Check Fentanyl Patch Placement) 1 ea QS N/A 12/13/16 00:00 01/12/17 00:00 12/14/16 07:44 1 EA Ondansetron HCl (Zofran Inj) 4 mg Q6H PRN IV 12/13/16 04:30 01/12/17 04:29 12/14/16 07:43 4 MG Guaifenesin (Mucinex Contr Rel Tab) 600 mg BID PO 12/13/16 09:00 01/12/17 08:59 12/14/16 09:02 600 MG Ipratropium Kinzers (Atrovent 0.02% 0.5MG/2.5ML Neb) 0.5 mg Q6R INH 12/13/16 09:00 01/12/17 08:59 12/14/16 06:52 0.5 MG Levalbuterol (Xopenex 1.25MG/ 0.5ML Neb) 1.25 mg Q6R INH 12/13/16 09:00 01/12/17 08:59 12/14/16 06:52 1.25 MG Trimethoprim/ Sulfamethoxazole (Septra Ds 800/ 160MG Tab) 1 tab Q12 PO 12/13/16 15:00 12/17/16 08:00 12/14/16 09:01 1 TAB Ketorolac Tromethamine (Toradol Inj) 15 mg Q6H PRN IV. 12/13/16 20:15 12/18/16 20:14 Fentanyl (Duragesic Patch) 75 mcg Q3D@1800 TD 12/13/16 18:00 12/27/16 17:59 12/13/16 18:29 75 MCG Polyethylene (Miralax Powder Packet) 17 gm DAILY PO 12/14/16 09:00 01/13/17 08:59 Miscellaneous 1 ea 1 ea Q3D@1800 N/A 12/13/16 18:00 01/12/17 17:59 12/13/16 18:28 1 EA Magnesium Sulfate/ Prmx (Magnesium Sulfate/Premixed D5W) 100 ml @ 100 mls/hr 0900,1000 IV 12/14/16 09:00 12/14/16 10:59 I & O: 24-Hour Column 12/14/16 08:00 Intake Total 417 ml Output Total 1725 ml Balance -1308 ml Vital Signs: Date Time Temp Pulse Resp B/P Pulse Ox O2 Delivery O2 Flow Rate FiO2 12/14/16 09:06 36.4 84 18 115/66 97 1.0 12/14/16 08:04 36.5 86 20 119/73 97 Nasal Cannula 1.0 12/14/16 08:00 36.8 107 18 129/63 99 12/14/16 06:53 83 18 98 Nasal Cannula 2.0 12/14/16 04:00 91 Room Air 2/1/17 03:37 36.6 86 20 123/62 96 Room Air 12/14/16 00:00 91 Room Air 12/13/16 22:41 36.6 89 20 116/65 92 Room Air 12/13/16 20:00 91 Room Air 12/13/16 19:27 82 18 93 Room Air 12/13/16 18:43 36.7 89 20 115/64 95 Nasal Cannula 2.0 12/13/16 16:00 Nasal Cannula 2.0 12/13/16 15:47 36.6 94 20 107/58 96 Nasal Cannula 2.0 12/13/16 14:05 87 18 95 Nasal Cannula 2.0 12/13/16 12:00 Nasal Cannula 2.0 12/13/16 11:59 36.6 108 16 124/66 95 Nasal Cannula Laboratory Results: Last 24 Hours Test 12/13/16 12:30 12/14/16 05:40 White Blood Count 8.06 K/uL 6.80 K/uL Red Blood Count 3.45 M/uL 3.23 M/uL Hemoglobin 8.1 g/dL 7.5 g/dL Hematocrit 26.3 % 24.6 % Mean Corpuscular Volume 76.2 fL 76.2 fL Mean Corpuscular Hemoglobin 23.5 pg 23.2 pg Mean Corpuscular Hemoglobin Concent 30.8 g/dl 30.5 g/dl Platelet Count 303 K/uL 292 K/uL Mean Platelet Volume 9.8 fL 9.6 fL Neutrophils (%) (Auto) 96.7 % 86.2 % Lymphocytes (%) (Auto) 1.6 % 5.9 % Monocytes (%) (Auto) 1.5 % 7.6 % Eosinophils (%) (Auto) 0.0 % 0.1 % Basophils (%) (Auto) 0.0 % 0.1 % Neutrophils # (Auto) 7.79 K/uL 5.85 K/uL Lymphocytes # (Auto) 0.13 K/uL 0.40 K/uL Monocytes # (Auto) 0.12 K/uL 0.52 K/uL Eosinophils # (Auto) 0.00 K/uL 0.01 K/uL Basophils # (Auto) 0.00 K/uL 0.01 K/uL RDW Standard Deviation 54.2 fL 54.8 fL RDW Coefficient of Variation 19.4 % 19.4 % Immature Granulocyte % (Auto) 0.2 % 0.1 % Immature Granulocyte # (Auto) 0.02 K/uL 0.01 K/uL Hypochromasia PRESENT PRESENT Anisocytosis PRESENT PRESENT Microcytosis PRESENT Sodium Level 131 mmol/L 135 mmol/L Potassium Level 3.1 mmol/L 4.0 mmol/L Chloride Level 86 mmol/L 89 mmol/L Carbon Dioxide Level 33 mmol/L 34 mmol/L Anion Gap 12.0 mmol/L 12.0 mmol/L Blood Urea Nitrogen 6 mg/dl 7 mg/dl Creatinine 0.77 mg/dl 0.61 mg/dl Est Creatinine Clear Calc Drug Dose 71.1 ml/min 89.1 ml/min Estimated GFR () 98.0 115.0 Estimated GFR (Non- 84.5 99.2 BUN/Creatinine Ratio 8.3 10.8 Random Glucose 247 mg/dl 96 mg/dl Calcium Level 9.5 mg/dl 10.2 mg/dl Magnesium Level 1.9 mg/dl 1.6 mg/dl Total Creatine Kinase 20 U/L Creatine Kinase MB 0.8 ng/ml Creatine Kinase MB Ratio 4.0 Troponin I 0.072 ng/ml Total Bilirubin 0.5 mg/dl Direct Bilirubin 0.2 mg/dl Aspartate Amino Transf (AST/SGOT) 25 U/L Alanine Aminotransferase (ALT/SGPT) 12 U/L Alkaline Phosphatase 111 U/L Total Protein 6.5 gm/dl Albumin 2.5 gm/dl
[2016-12-14] MEDS: MAGNESIUM SULFATE 1GM / D5W 1 GM in PREMIXED IN D5W 100 ML IV SCH ×2 (12:32→13:40)
[2016-12-14] MEDS ORDERED: VANCOMYCIN TROUGH SCH (15:30)
[2016-12-14] MEDS ORDERED: FUROSEMIDE 20 MG TAB PO ONE (16:15)
--- NOTE | 2016-12-14 19:24 | Discharge Summary ---
Discharge Summary Admission Date: Dec 12, 2016 at 20:08 Discharge Date: Dec 14, 2016 Discharge Disposition: Home Principal Diagnosis: Lower extremity edema, chest wall pain Problems/Secondary Diagnoses: Metastatic uterine carcinosarcoma Chest wall mass Acute hypoxemic respiratory failure Demand ischemia Severe anemia-antineoplastic related Hypoalbuminemia Chronic diastolic CHF Mild pulmonary hypertension (Est PASP 40-45 mmHg, RA 8) Constipation UTI Hyponatremia Hypomagnesemia Immunizations: Have You Had Influenza Vaccine: Yes History of Tetanus Vaccine?: No History of Pneumococcal: No History of Hepatitis B Vaccine: No Procedures: ULTRASOUND VENOUS DOPPLER LWR EXT BILA CLINICAL HISTORY: Bilateral leg swelling COUGH COMPARISON STUDY: No previous studies for comparison. FINDINGS: Real-time and color flow Doppler imaging were performed. Flow was seen within the femoral, popliteal and calf veins with no intraluminal thrombus demonstrated. The saphenous vein is patent. IMPRESSION: No evidence of lower extremity DVT SINGLE VIEW CHEST CLINICAL HISTORY: Generalized abdominal pain. Lower extremity swelling. History of lung cancer. FINDINGS: An AP, portable, upright chest radiograph is compared to study dated 12/05/2016 and correlated with chest CT dated 08/16/2016. A right internal jugular central venous infusion port is unchanged in position. The cardiac silhouette is largely obscured. The pulmonary vasculature is noncongested. Postoperative changes and volume loss are again noted in the right lung. Pleural fluid and parenchymal opacification throughout the right lung is similar to previous. The left lung is grossly clear. There is no pneumothorax. The skeletal structures are osteopenic. The bony thorax appears intact. IMPRESSION: 1. Pleural-parenchymal opacification throughout the right lung is unchanged from 12/05/2016. 2. The left lung is grossly clear. KUB HISTORY: Generalized abdominal pain. COMPARISON: Chest 12/12/2016. Abdomen and pelvis CT 11/02/2016. FINDINGS: There are no dilated loops of small bowel to suggest an obstruction. Large amount well-formed stool seen within the colon and rectum. Stable complete opacification of the base of the right lung. No renal calculi. No ureteral calculi. No pneumoperitoneum or pneumatosis. Of note, the majority of the bowel is located within the left side the abdomen due to the inferiorly displaced liver. This remains unchanged. IMPRESSION: 1. No dilated loops of small bowel to suggest an obstruction. 2. Large amount of well-formed stool seen within the colon. 3. No change in the opacified right lung base. This is consistent with the patient's history of metastatic disease. XRT x 2 Consultations: Pulmonology Cardiology Radiation Oncology Medication Reconciliation New Medications: Furosemide (Lasix) 20 Mg Tab 20 MG PO QAM PRN for leg swelling, #30 TAB Polyethylene (Miralax) 17 Gm Pow 17 GM PO DAILY PRN for Constipation for 30 Days Sulfamethoxazole-Trimethoprim (Smz-Tmp Ds) 1 Tab Tab 1 TAB PO Q12 for 2 Days, #4 TAB Changed Medications: Fentanyl (Duragesic) 50 Mcg Tdsy 50 MCG TD CQ72HR for 30 Days, PATCH (Medication details modified) and also to be used in combination with the Fentanyl TD patch 12 mcg every 72 hours for a total of 62 mcg. You already have this 12 mcg patch at home. Continued Medications: Acetaminophen Tab (Tylenol) 325 Mg Tab 650 MG PO Q4-6H PRN for Pain, TAB Calcium Citrate-Vitamin D (Calcium Citrate + D) 1 Tab Tab 1 TAB PO TID Multivitamin (Multivitamin) Tab 1 TAB PO QAM, TAB Ondansetron Odt (Zofran Odt) 8 Mg Soltab 8 MG SL Q6H PRN for Nausea, #15 TAB 0 Refills Tramadol HCl (Tramadol HCl) 50 Mg Tab 50 MG PO Q4H PRN for Pain, #30 TAB 0 Refills Referrals At Discharge Follow up Referrals: Oncology/Hematology Referral - 12/15/16 with Veeral. Momin MD Oncology/Hematology Referral - Within 1 Week with Libra Espinal CRNP Physician Referral - Within 1 Week with Chris Mei D.O. Discharge Exam Pt feels much improved on day of discharge. Hgb was down to 7.5 and was transfused 1 unit PRBCs. She received her XRT as scheduled. She was still requiring O2 and was set up with home oxygen. Review of Systems: Constitutional: No fever Eyes: No problem reported ENT: No problem reported Respiratory: + dyspnea on exertion Cardiovascular: + chest pain (right chest wall pain) Abdomen: No nausea, No pain, No vomiting Musculoskeletal: No problem reported Genitourinary - Female: No problem reported Neurologic: No problem reported Psychiatric: No problem reported Endocrine: No problem reported Hematologic / Lymphatic: No problem reported Integumentary: No problem reported Physical Exam: General Appearance: no apparent distress, + thin Eyes: normal inspection, sclerae normal ENT: hearing grossly normal Neck: trachea midline Respiratory/Chest: no respiratory distress, no accessory muscle use, + decreased breath sounds (in entire right lung field) Cardiovascular: regular rate, rhythm, no murmur, + pertinent finding (1+ pitting edema legs to knees bilat) Abdomen / GI: normal bowel sounds, non tender, soft, + pertinent finding (+ large right sided chest wall mass palpable in midaxillary region) Extremities: no calf tenderness Neurologic/Psychiatric: alert, normal mood/affect, oriented x 3 Skin: normal color, warm/dry, no rash Hospital Course Pt is a 61 yo female with metastatic uterine carcinosarcoma involving the right chest wall which is causing significant pain. The patient is currently being treated with Opdivo underneath the supervision of Dr. Pranav Santa and Libra Fatima, as well as Palliative XRT to her right chest wall mass. She presented to the ER at the direction of her Radiation Oncologist after c/o 2 weeks of progressively worsening lower extremity edema and pain, generalized body aches, shortness of breath, and headache. She was hypoxic with POx 89% on RA on presentation. She was admitted to r/o CHF as a cause although her proBNP was normal. She did have a mildly elevated troponin that remained stable. There was also initially a question of whether she may have a post-obstructive type of PNA due to elevated WBC count and CXR findings. She was placed on Vancomycin and Zosyn which was then stopped the next day after Pulmonary evaluation determined she did not have a post-obstructive PNA. Doppler of the lower extremities bilaterally was negative for DVT. Lower extremity edema/elevated troponin/hypoalbuminemia/Chronic diastolic CHF-- -admitted to the telemetry unit -serial cardiac enzymes elevated mildly but stable are evidence of demand ischemia due to significant pulmonary process more than likely. Cardiology saw patient and does not think this is acute CHF, and agreed that troponin is not overly concerning given her underlying metastatic disease. ECHO showed: * 1. Normal LV size and wall thickness. * 2. Normal LV function. LVEF 55-60%. No regional wall motion abnormalities. * 3. Borderline RV enlargement, normal RV function. * 4. No significant valvular pathology. * 5. Mild pulmonary hypertension (Est PASP 40-45 mmHg, RA 8) * 6. Compared with prior study on 07/06/2016: No significant change. -Initially she was placed on albumin with Lasix IV every 6 hours but then this was stopped. She did have diuresis and her LE edema improved. Potassium replaced. -she will be given lasix po to take once daily prn leg swelling -encourgaed increased protein and nutrition to improve albumin to help with edema Hypoxia/right lung and chest wall mass--hypoxia did improve with diuresis but may be due to hypoalbuminemia and improved with IV albumin. Unfortunately has metastatic disease in the lung and chest wall. Pain is exacerbated in right chest wall due to positioning for XRT, requiring increased doses of tramadol. IV toradol helped a lot here. -continue Opdivo and XRT as scheduled -encouraged po nutrition for protein intake -f/u with XRT and Med Oncology -increase Fentanyl patch to 75 mcg here but pt has the 50mcg and the 12 mcg patches at home and will use both until gone, then will get refill of 75 mcg patch from Oncology -I did discuss this with JORDI Smith from Oncology on the phone today prior to discharge -bowel regimen for constipation -Appreciate Pulm recommendations -Consider outpatient PAIN MANAGEMENT consult if worsens again -required home O2 for POx 86% on RA at rest UTI--UA likely contaminated sample, Ur cx growing corynebacterium, skin fabio -finish 3 days of Bactrim po Hyponatremia Na+ 131--> 133 with diuresis, with hypervolemia and hypoalbuminemia 2.5 --albumin with Lasix IV was given as noted above. -replaced Mg and K+ Anemia-Hgb 7.8-->8.1--> 7.5 and was mildly tachycaridc, likely side effect of chemo vs anemia of chronic disease -transfused 1 unit PRBCs on 12/14 and improved clinically Proph-SCDs Dispo- FULL CODE -to home with home O2 Total Time Spent: Greater than 30 minutes This includes examination of the patient, discharge planning, medication reconciliation, and communication with other providers. Discharge Instructions Please refer to the electronic Patient Visit Report (Discharge Instructions) for additional information. Follow-Up With Rad Onc in 1 day With Med Onc in 1 week With PCP in 1 week Additional Copies To Veeral. Momin MD; Chris Mei D.O.; Libra Espinal CRNP
[2016-12-15] MEDS ORDERED: FENTANYL PATCH REMOVE & WASTE SCH (15:59)
[2016-12-15] MEDS ORDERED: FENTANYL 50 MCG/HR TDSY TD SCH (16:00)
[2016-12-21] MEDS ORDERED: MULT-506 PO (11:45)
== END 2016-12-14 17:17 | disposition home or self-care (01) | DRG 947 ==
LOC: ENRESERVTM → ENRESERVDT → C.EDB 14:56 → C.2E 20:08
PROVIDERS: ADMIT Hospitalist; ATTEND Family Medicine
DX: R60.0 Localized edema (principal); J96.01 Acute respiratory failure with hypoxia; I50.32 Chronic diastolic (congestive) heart failure; C79.89 Secondary malignant neoplasm of other specified sites; I24.8 Other forms of acute ischemic heart disease; E87.1 Hypo-osmolality and hyponatremia; N39.0 Urinary tract infection, site not specified; J90 Pleural effusion, not elsewhere classified; C55 Malignant neoplasm of uterus, part unspecified; K59.00 Constipation, unspecified; I27.2 Other secondary pulmonary hypertension; E83.42 Hypomagnesemia; D64.81 Anemia due to antineoplastic chemotherapy; E88.09 Other disorders of plasma-protein metabolism, not elsewhere classified; D63.8 Anemia in other chronic diseases classified elsewhere; Z99.81 Dependence on supplemental oxygen; R79.89 Other specified abnormal findings of blood chemistry; R60.1 Generalized edema; B96.89 Other specified bacterial agents as the cause of diseases classified elsewhere; Z95.5 Presence of coronary angioplasty implant and graft; Z96.89 Presence of other specified functional implants; Z79.899 Other long term (current) drug therapy; Z79.891 Long term (current) use of opiate analgesic

== ENCOUNTER 2016-12-21 16:21 | Emergency (ER) | payer BC ==
[~2016-12-21] VITALS: Ht 160 cm; Wt 65.0 kg
[~2016-12-21 16:21] MED LIST changes: +FURO-85 PO; +MRLP17 PO; +MULT-506 PO; +SULF-183 PO
[2016-12-21 16:52] VITALS: TEMP 36.5; Ht 160 cm; Wt 65.0 kg
[2016-12-21] MEDS ORDERED: FENTANYL CITRATE INJ 50 MCG/1 ML 2 ML VIAL IV STA (17:13)
[2016-12-21] MEDS ORDERED: SODIUM CHLORIDE 0.9% 500ML 500 ML IV STA (17:13)
[2016-12-21] MEDS ORDERED: ONDANSETRON INJ 2 MG/ML 2 ML VIAL IV STA (17:13)
[2016-12-21] MEDS ORDERED: SODIUM CHLORIDE 0.9% 1000ML 1,000 ML IV STA (17:13)
--- NOTE | 2016-12-21 17:25 | EMERGENCY ROOM VISIT NOTE ---
History Report prepared by Kayla: Coy Vernon Under the Supervision of: Dr. Lissa Espinosa M.D. First contact with patient: 17:02 Chief Complaint: VOMITING Stated Complaint: NAUSEA/VOMITING, PAIN, WEAKNESS Nursing Triage Summary: pain in R rib, pt had radiation today for lung ca, pt on chemo, pt c/o nausea, vomiting and weakness, she thinks she is dehydrated History of Present Illness The patient is a 61 year old female who presents to the Emergency Room with complaints of worsening weakness that started prior to arrival today. Per the patient's friend, the patient was just having radiation treatment for lung cancer earlier today, and the patient was sent here directly from treatment due to probable dehydration. The patient complains of flank pain on the right side where the tumor is, and she has been vomiting almost every day recently. She is not sure if the vomiting is related to the chemo. The patient states that drinking makes her vomit. She has also been constipated this week. The patient has been having worsening confusion over the past 2 weeks. For example, the patient has been having trouble remembering things including the day of the week. The patient lives alone. She denies any fevers or diarrhea. The patient is taking pain medication and has a Fentanyl patch. Source of History: patient, friend Onset: Prior to arrival today Position: other (global - weakness) Timing: worsening Associated Symptoms: + vomiting, No diarrhea, No fevers Note: Associated symptoms: Right flank pain, constipation, worsening confusion Review of Systems See HPI for pertinent positives & negatives. A total of 10 systems reviewed and were otherwise negative. Past Medical & Surgical Medical Problems: (1) Anasarca (2) Carcinosarcoma of uterus (3) Pleural effusion (4) Port catheter in place Family History Cancer FH: abdominal aortic aneurysm repair Social History Smoking Status: Never Smoker Drug Use: none Marital Status: Occupation Status: employed Current/Historical Medications Scheduled Fentanyl (Duragesic), 50 MCG TOP [id number] Multivitamin (Multivitamin), 1 TAB PO QAM Scheduled PRN Furosemide (Furosemide), 20 MG PO QAM PRN for Leg Swelling Ondansetron (Ondansetron HCl), 8 MG PO Q8 PRN for Nausea or Vomiting Tramadol HCl (Tramadol HCl), 50 MG PO Q4H PRN for Pain Allergies Coded Allergies: Oxycodone (Verified Adverse Reaction, Unknown, NAUSEA AND VOMITING WITH EVERY DOSE, 12/12/16) Physical Exam Vital Signs Date Time Temp Pulse Resp B/P Pulse Ox O2 Delivery O2 Flow Rate FiO2 12/21/16 21:52 69 16 108/64 99 Nasal Cannula 3.0 12/21/16 21:15 72 18 117/64 99 Nasal Cannula 2.0 12/21/16 19:41 70 16 122/71 99 Nasal Cannula 2.0 12/21/16 18:29 72 12/21/16 17:34 77 12/21/16 17:33 76 24 122/69 98 12/21/16 16:52 36.5 83 18 112/68 92 Nasal Cannula 2.0 Physical Exam Vital signs reviewed. General: Chronically ill-appearing 61 year old female, in significant discomfort. HEENT: No scleral icterus, PERRLA, neck supple. Atraumatic. Cardiovascular: Regular rate and rhythm, no extra sounds. Pulmonary: Clear to auscultation bilaterally, normal work of breathing. Abdomen: Soft, tenderness to palpation of right upper quadrant and right chest wall, nondistended, positive bowel sounds. Musculoskeletal: Atraumatic, no peripheral edema. Neurologic: Patient awake alert and oriented x 3, generally weak. Skin: Warm, dry, no rash Medical Decision & Procedures ER Provider Diagnostic Interpretation: X-ray results as stated below per interpretation by me and the radiologist: ABDOMEN 2VIEW W/PA CHEST RTN CLINICAL HISTORY: vomiting, constipation RIGHT-SIDED CHEST AND ABDOMINAL PAIN. COUGH. NAUSEA. COMPARISON STUDY: Chest x-ray dated 12/12/2016 FINDINGS: There are postsurgical changes within the right hemithorax. There is near complete opacification of the right hemithorax. There is a right-sided A-Port catheter present. Supine and decubitus views of the abdomen reveal no abnormally dilated loops of large or small bowel. There are no transition zone to indicate bowel obstruction. There is no free air. There is an elongated right lobe of the liver. There are multiple lytic lesions within the right ribs consistent with metastatic disease. IMPRESSION: 1. No evidence of bowel obstruction. No evidence of free air 2. Persistent near complete opacification of the right hemithorax 4. 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 12/21/2016 7:22 PM Dictated Date/Time: 12/21/2016 7:19 PM Laboratory Results 12/21/16 18:26 Red Blood Count 3.47, Mean Corpuscular Volume 76.4, Mean Corpuscular Hemoglobin 23.3, Mean Corpuscular Hemoglobin Concent 30.6, Mean Platelet Volume 9.4, Neutrophils (%) (Auto) 86.5, Lymphocytes (%) (Auto) 6.3, Monocytes (%) (Auto) 6.7, Eosinophils (%) (Auto) 0.1, Basophils (%) (Auto) 0.1, Neutrophils # (Auto) 6.21, Lymphocytes # (Auto) 0.45, Monocytes # (Auto) 0.48, Eosinophils # (Auto) 0.01, Basophils # (Auto) 0.01 12/21/16 18:26 Test 12/21/16 17:34 12/21/16 18:26 Urine Color YELLOW Urine Appearance TURBID (CLEAR) Urine pH 6.5 (4.5-7.5) Urine Specific [place] 1.011 (1.000-1.030) Urine Protein NEG (NEG) Urine Glucose (UA) NEG (NEG) Urine Ketones 2+ (NEG) Urine Occult Blood NEG (NEG) Urine Nitrite NEG (NEG) Urine Bilirubin NEG (NEG) Urine Urobilinogen NEG (NEG) Urine Leukocyte Esterase TRACE (NEG) Urine WBC (Auto) 1-5 /hpf (0-5) Urine RBC (Auto) 0-4 /hpf (0-4) Urine Hyaline Casts (Auto) 1-5 /lpf (0-5) Urine Epithelial Cells (Auto) 20-30 /lpf (0-5) Urine Bacteria (Auto) NEG (NEG) White Blood Count 7.18 K/uL (4.8-10.8) Red Blood Count 3.47 M/uL (4.2-5.4) Hemoglobin 8.1 g/dL (12.0-16.0) Hematocrit 26.5 % (37-47) Mean Corpuscular Volume 76.4 fL (80-100) Mean Corpuscular Hemoglobin 23.3 pg (25-34) Mean Corpuscular Hemoglobin Concent 30.6 g/dl (32-36) Platelet Count 311 K/uL (130-400) Mean Platelet Volume 9.4 fL (7.4-10.4) Neutrophils (%) (Auto) 86.5 % Lymphocytes (%) (Auto) 6.3 % Monocytes (%) (Auto) 6.7 % Eosinophils (%) (Auto) 0.1 % Basophils (%) (Auto) 0.1 % Neutrophils # (Auto) 6.21 K/uL (1.4-6.5) Lymphocytes # (Auto) 0.45 K/uL (1.2-3.4) Monocytes # (Auto) 0.48 K/uL (0.11-0.59) Eosinophils # (Auto) 0.01 K/uL (0-0.5) Basophils # (Auto) 0.01 K/uL (0-0.2) RDW Standard Deviation 54.3 fL (36.4-46.3) RDW Coefficient of Variation 19.3 % (11.5-14.5) Immature Granulocyte % (Auto) 0.3 % Immature Granulocyte # (Auto) 0.02 K/uL (0.00-0.02) Hypochromasia PRESENT Poikilocytosis PRESENT Anisocytosis PRESENT Anion Gap 15.0 mmol/L (3-11) Est Creatinine Clear Calc Drug Dose 122.0 ml/min Estimated GFR () 127.1 Estimated GFR (Non- 109.7 BUN/Creatinine Ratio 16.9 (10-20) Calcium Level 10.4 mg/dl (8.5-10.1) Magnesium Level 1.3 mg/dl (1.8-2.4) Total Bilirubin 0.7 mg/dl (0.2-1) Direct Bilirubin 0.3 mg/dl (0-0.2) Aspartate Amino Transf (AST/SGOT) 30 U/L (15-37) Alanine Aminotransferase (ALT/SGPT) 15 U/L (12-78) Alkaline Phosphatase 139 U/L (45-117) Total Protein 6.8 gm/dl (6.4-8.2) Albumin 2.3 gm/dl (3.4-5.0) Laboratory results per my review. Medications Administered Medications (Trade) Dose Ordered Sig/Pancho Route Start Time Stop Time Status Last Admin Dose Admin Sodium Chloride 500 ml @ 999 mls/hr Q31M STAT IV 12/21/16 17:13 12/21/16 17:43 DC 12/21/16 18:15 999 MLS/HR Sodium Chloride (Nss 1000ml) 1,000 ml @ 125 mls/hr Q8H STAT IV 12/21/16 17:13 12/21/16 22:59 DC 12/21/16 19:18 125 MLS/HR Ondansetron HCl (Zofran Inj) 4 mg NOW STAT IV 12/21/16 17:13 12/21/16 17:15 DC 12/21/16 18:15 4 MG Fentanyl Citrate (Fentanyl Inj) 100 mcg NOW STAT IV 12/21/16 17:13 12/21/16 17:15 DC 12/21/16 18:16 100 MCG Magnesium Sulfate (Magnesium Sulfate) 2 gm NOW STAT IV 12/21/16 19:21 12/21/16 20:25 DC 12/21/16 20:19 2 GM Heparin Sodium (Porcine) (Heparin 100 Unit/ml 5ml Flush) 5 ml STK-MED ONCE .ROUTE 12/21/16 21:58 12/21/16 22:00 DC 12/21/16 21:58 5 ML ECG Indication: vomiting Rate (beats per minute): 74 Rhythm: normal sinus Findings: no ectopy, other (left atrial enlargement, left axis deviation, T- wave abnormality in anterior leads) ED Course 1706: Past medical records reviewed. The patient was evaluated in room B6. A complete history and physical examination was performed. 3: Ordered Fentanyl Inj 100 mcg IV, Zofran Inj 4 mg IV, NSS 1000 ml @ 125 mls /hr IV, NSS 500 ml @ 999 mls/hr IV. 0: I reevaluated the patient and she is resting comfortably and wants to go home. The patient verbally expressed understanding and agreement of the treatment plan. The patient will be discharged. 2022: Ordered Mag-Ox Tab 400 mg PO, Magnesium Sulfate 1 gm IV. Medical Decision Differential diagnoses include: metastatic pain, rib fracture, pleural effusion , pneumonia, pulmonary infarct, pulmonary embolism, viral syndrome, hematherapeutic effect, bowel obstruction. This pt was evaluated and appeared to be chronically ill. IV access was obtained and lab work was drawn. Pt was hydrated with NSS, given IV zofran and fentanyl. Abd XR series is read as above. There are no significant changes in CXR and no FA or obstruction. Pt has a metastatic process and is undergoing palliative tx. Lab work reveals a mild leukocytosis, chronic anemia and magnesium of 1.3. Pt was ordered 2 gm of IV magnesium but did not want to wait for entire infusion. She was medicated with 400 mg oral mag oxide and 1 gm IV mag. Pt was hopeful to be d/c to home. She will have family with her overnight. She will f.u with oncology this week and return to the ED for worsening of symptoms or any medical concerns. Impression Primary Impression: Nausea and vomiting Additional Impressions: Hypomagnesemia Metastatic carcinoma Scribe Attestation The scribe's documentation has been prepared under my direction and personally reviewed by me in its entirety. I confirm that the note above accurately reflects all work, treatment, procedures, and medical decision making performed by me. Departure Information Dispostion Home / Self-Care Referrals Chris Mei D.O. (PCP) Forms HOME CARE DOCUMENTATION FORM, IMPORTANT VISIT INFORMATION Patient Instructions My [facility] Additional Instructions Diagnosis: Metastatic carcinoma, vomiting, hypomagnesemia Drink plenty of clear fluids. Take your Phenergan as prescribed. Follow-up with your oncologist tomorrow as scheduled. Return to the emergency department for worsening of symptoms or any medical concerns. Problem Qualifiers Primary Impression: Nausea and vomiting Vomiting type: unspecified Vomiting Intractability: non-intractable Qualified Codes: R11.2 - Nausea with vomiting, unspecified
[2016-12-21] MEDS ORDERED: FNTTP50 TOP (17:33)
[2016-12-21] MEDS ORDERED: ONDA-63 PO (17:33)
[2016-12-21] MEDS ORDERED: ULT50 PO (17:33)
[2016-12-21] MEDS ORDERED: LSX20 PO (17:33)
[2016-12-21 17:55] LABS: MANUAL MICROSCOPIC REQUIRED? NO; REVIEW REQ? NO; URINE APPEARANCE TURBID (CLEAR); URINE BILIRUBIN NEG (NEG); URINE COLOR YELLOW; URINE EPITHELIAL CELL AUTO 20-30 /lpf (0-5); URINE NITRITE NEG (NEG); URINE PH 6.5 (4.5-7.5); URINE SPECIFIC GRAVITY 1.011 (1.000-1.030); UROBILINOGEN NEG (NEG); ZZUR CULT IF INDIC CLEAN CATCH NO
[2016-12-21 18:38] LABS: BASO % 0.1 %; BASO ABS # 0.01 K/uL (0-0.2); EOS % 0.1 %; HEMATOCRIT 26.5 % (37-47); IG% 0.3 %; LYMPH % 6.3 %; LYMPH ABS # 0.45 K/uL (1.2-3.4); MEAN CELL VOLUME 76.4 fL (80-100); MEAN CORPUSCULAR HEMOGLOBIN 23.3 pg (25-34); MEAN CORPUSCULAR HGB CONC 30.6 g/dl (32-36); MEAN PLATELET VOLUME 9.4 fL (7.4-10.4); MONO % 6.7 %; NEUT % 86.5 %; PLATELET COUNT 311 K/uL (130-400); RED BLOOD COUNT 3.47 M/uL (4.2-5.4); WHITE BLOOD COUNT 7.18 K/uL (4.8-10.8)
[2016-12-21 18:59] LABS: BUN/CREATININE RATIO 16.9 (10-20); CALCIUM 10.4 mg/dl (8.5-10.1); CREATININE 0.45 mg/dl (0.60-1.20); MAGNESIUM 1.3 mg/dl (1.8-2.4); POTASSIUM 4.3 mmol/L (3.5-5.1)
[2016-12-21 19:18] LABS: ANISOCYTOSIS PRESENT; COMPLETE YES; HYPOCHROMIA PRESENT; POIKILOCYTOSIS PRESENT
[2016-12-21] MEDS ORDERED: MAGNESIUM SULFATE 1GM / D5W 1 GM BAG IV STA ×2 (19:21→20:23)
--- NOTE | 2016-12-21 19:24 | DIAGNOSTIC IMAGING REPORT ---
ABDOMEN 2VIEW W/PA CHEST RTN CLINICAL HISTORY: vomiting, constipation RIGHT-SIDED CHEST AND ABDOMINAL PAIN. COUGH. NAUSEA. COMPARISON STUDY: Chest x-ray dated 12/12/2016 FINDINGS: There are postsurgical changes within the right hemithorax. There is near complete opacification of the right hemithorax. There is a right-sided A-Port catheter present. Supine and decubitus views of the abdomen reveal no abnormally dilated loops of large or small bowel. There are no transition zone to indicate bowel obstruction. There is no free air. There is an elongated right lobe of the liver. There are multiple lytic lesions within the right ribs consistent with metastatic disease. IMPRESSION: 1. No evidence of bowel obstruction. No evidence of free air 2. Persistent near complete opacification of the right hemithorax 4. 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 12/21/2016 7:22 PM Dictated Date/Time: 12/21/2016 7:19 PM
[2016-12-21] MEDS ORDERED: MAGNESIUM OXIDE 400 MG TAB PO STA (20:23)
[2016-12-21 21:52] VITALS: BP 108/64; PULSE 69; O2SAT 99
== END 2016-12-21 22:17 | disposition home or self-care (01) ==
LOC: C.EDB 16:22
DX: R11.2 Nausea with vomiting, unspecified (principal); E83.42 Hypomagnesemia; C34.90 Malignant neoplasm of unspecified part of unspecified bronchus or lung; Z85.42 Personal history of malignant neoplasm of other parts of uterus; Z82.49 Family history of ischemic heart disease and other diseases of the circulatory system